=== PATIENT | male | born 1955 | race Caucasian/White ===

== ENCOUNTER 2017-01-04 01:50 | Emergency (ER) | payer MEDICARE ==
[~2017-01-04] VITALS: Ht 175.3 cm; Wt 79.1 kg
[~2017-01-04 01:50] MED LIST: DIVA125T2 PO; LURA20TA PO; ZOLP-413 PO
[2017-01-04 01:55] VITALS: BP 134/70
== END 2017-01-04 02:25 | disposition home or self-care (01) ==
LOC: ED 02:20
DX: Z00.8 Encounter for other general examination (principal); F31.9 Bipolar disorder, unspecified; F17.200 Nicotine dependence, unspecified, uncomplicated
CPT/HCPCS: 99283

== ENCOUNTER 2017-01-24 18:26 | Emergency (ER) | payer MEDICARE ==
[~2017-01-24] VITALS: Ht 180.3 cm; Wt 69.0 kg
[2017-01-24 19:54] VITALS: BP 124/74
== END 2017-01-24 19:57 | disposition home or self-care (01) ==
LOC: ED 19:51
DX: Z76.0 Encounter for issue of repeat prescription (principal); F31.9 Bipolar disorder, unspecified
CPT/HCPCS: 82962; 99283

== ENCOUNTER 2017-02-25 04:29 | Emergency (ER) | payer MEDICARE ==
[~2017-02-25] VITALS: Ht 167.6 cm; Wt 70.0 kg
[~2017-02-25 04:29] MED LIST changes: +CHLO5CAP2 PO
[2017-02-25 05:54] LABS: HEMATOCRIT 38.8 % (39.2-51.8); HEMOGLOBIN 13.3 g/dL (13.7-18.0)
[2017-02-25 06:05] LABS: ASPARTATE AMINO TRANSFERASE 30 U/L (15-37); BLOOD UREA NITROGEN 25 mg/dL (7-18)
[2017-02-25 06:07] LABS: ACETAMINOPHEN < 2 mcg/mL (10-30)
[2017-02-25 10:06] VITALS: BP 101/61
== END 2017-02-25 10:07 | disposition home or self-care (01) ==
LOC: ED 04:33
DX: F31.9 Bipolar disorder, unspecified (principal); F17.210 Nicotine dependence, cigarettes, uncomplicated
CPT/HCPCS: 36415; 80053; 80307; 80329; 85025; 99284; G0479; G0480

== ENCOUNTER 2017-03-08 19:10 | Emergency (ER) | payer MEDICARE ==
[~2017-03-08] VITALS: Ht 177.8 cm; Wt 70.1 kg
[2017-03-08 19:37] LABS: HEMATOCRIT 38.4 % (39.2-51.8); HEMOGLOBIN 12.8 g/dL (13.7-18.0); WHITE BLOOD COUNT 11.7 x10^3/uL (3.4-10)
[2017-03-08 19:51] LABS: BLOOD UREA NITROGEN 21 mg/dL (7-18)
[2017-03-08 19:55] LABS: ACETAMINOPHEN < 2 mcg/mL (10-30); ASPARTATE AMINO TRANSFERASE 31 U/L (15-37)
[2017-03-08] MEDS ORDERED: CEFAZOLIN 1,000 MG IM ONE (20:30)
[2017-03-08] MEDS ORDERED: CEFAZOLIN 1,000 MG ONE (20:35)
[2017-03-08 20:51] VITALS: BP 95/55
== END 2017-03-08 22:08 | disposition home or self-care (01) ==
LOC: ED 19:46
DX: L03.114 Cellulitis of left upper limb (principal); L03.113 Cellulitis of right upper limb; Z59.0 Homelessness
CPT/HCPCS: 36415; 80053; 80307; 80329; 85025; 96372; 99284; J0690; G0479; G0480

== ENCOUNTER 2017-03-24 17:19 | Emergency (ER) | payer MEDICARE ==
[~2017-03-24] VITALS: Ht 180.3 cm; Wt 69.1 kg
[2017-03-24 17:20] VITALS: BP 98/67
[2017-03-24 18:34] LABS: HEMATOCRIT 38.2 % (39.2-51.8); HEMOGLOBIN 12.9 g/dL (13.7-18.0); WHITE BLOOD COUNT 4.9 x10^3/uL (3.4-10)
[2017-03-24 18:45] LABS: BLOOD UREA NITROGEN 21 mg/dL (7-18)
[2017-03-24 18:49] LABS: IS PT STATUS REG ER OR PRE ER? YES
== END 2017-03-24 20:16 | disposition home or self-care (01) ==
LOC: ED 20:10
DX: R07.89 Other chest pain (principal); F31.9 Bipolar disorder, unspecified; Z59.0 Homelessness
CPT/HCPCS: 36415; 71010; 80048; 82040; 84484; 85025; 93005; 99285

== ENCOUNTER 2017-03-29 19:51 | Emergency (ER) | payer MEDICARE ==
[~2017-03-29] VITALS: Ht 180.3 cm; Wt 80.0 kg
[2017-03-29] MEDS ORDERED: ASPIRIN 81 MG TABLET CHEW PO ONE (20:00)
[2017-03-29] MEDS ORDERED: SODIUM CHLORIDE FLUSH 10ML SYR IVF ONE (20:00)
[2017-03-29 20:25] VITALS: BP 113/69
[2017-03-29] MEDS ORDERED: ASPIRIN 81 MG TABLET CHEW ONE (20:29)
[2017-03-29] MEDS ORDERED: DIPHENHYDRAMINE 25 MG CAPSULE ONE (20:29)
[2017-03-29 20:37] LABS: HEMATOCRIT 37.9 % (39.2-51.8); HEMOGLOBIN 12.6 g/dL (13.7-18.0); WHITE BLOOD COUNT 8.7 x10^3/uL (3.4-10)
[2017-03-29 20:54] LABS: BLOOD UREA NITROGEN 30 mg/dL (7-18)
[2017-03-29 21:00] LABS: ASPARTATE AMINO TRANSFERASE 23 U/L (15-37)
[2017-03-29 21:03] LABS: IS PT STATUS REG ER OR PRE ER? YES
== END 2017-03-29 21:28 | disposition home or self-care (01) ==
LOC: ED 20:19
DX: R07.2 Precordial pain (principal); Z72.89 Other problems related to lifestyle; F17.200 Nicotine dependence, unspecified, uncomplicated
CPT/HCPCS: 36415; 71010; 80053; 83880; 84484; 85025; 93005; 99285

== ENCOUNTER 2017-03-30 22:09 | Emergency (ER) | payer MEDICARE ==
[~2017-03-30] VITALS: Ht 180.3 cm; Wt 70.0 kg
[2017-03-30 23:10] VITALS: BP 115/70
== END 2017-03-31 01:17 | disposition home or self-care (01) ==
LOC: ED 23:39
DX: Z00.00 Encounter for general adult medical examination without abnormal findings (principal); F31.9 Bipolar disorder, unspecified
CPT/HCPCS: 93005; 99283

== ENCOUNTER 2017-04-02 21:45 | Emergency (ER) | payer MEDICARE ==
[~2017-04-02] VITALS: Ht 180.3 cm; Wt 72.8 kg
[2017-04-02 23:33] LABS: HEMATOCRIT 36.8 % (39.2-51.8); HEMOGLOBIN 12.1 g/dL (13.7-18.0); WHITE BLOOD COUNT 9.2 x10^3/uL (3.4-10)
[2017-04-02 23:37] VITALS: BP 119/79
[2017-04-02 23:45] LABS: BLOOD UREA NITROGEN 26 mg/dL (7-18)
[2017-04-03 00:02] LABS: IS PT STATUS REG ER OR PRE ER? NO
== END 2017-04-02 23:39 | disposition home or self-care (01) ==
LOC: ED 23:16
DX: R07.9 Chest pain, unspecified (principal); F31.9 Bipolar disorder, unspecified
CPT/HCPCS: 36415; 80048; 82040; 84484; 85025; 93005; 99285

== ENCOUNTER 2017-04-05 05:35 | Emergency (ER) | payer MEDICARE | END 2017-04-05 06:07 | disposition left against medical advice (07) | LOC: ED 06:00 | DX: R07.9 Chest pain, unspecified (principal); Z53.21 Procedure and treatment not carried out due to patient leaving prior to being seen by health care provider ==

== ENCOUNTER 2017-04-05 06:26 | Emergency (ER) | payer MEDICARE, OTHER ==
[~2017-04-05] VITALS: Ht 180.3 cm; Wt 69.3 kg
[2017-04-05 06:28] VITALS: BP 107/70
== END 2017-04-05 09:54 | disposition home or self-care (01) ==
LOC: ED 09:48
DX: Z00.00 Encounter for general adult medical examination without abnormal findings (principal)
CPT/HCPCS: 82962; 99282

== ENCOUNTER 2017-04-06 01:46 | Emergency (ER) | payer MEDICARE, OTHER ==
[~2017-04-06] VITALS: Ht 180.3 cm; Wt 58.1 kg
[2017-04-06 01:51] VITALS: BP 151/79
== END 2017-04-06 02:49 | disposition home or self-care (01) ==
LOC: ED 02:43
DX: R10.9 Unspecified abdominal pain (principal); Z76.5 Malingerer [conscious simulation]
CPT/HCPCS: 99283

== ENCOUNTER 2017-04-08 01:54 | Emergency (ER) | payer MEDICARE ==
[~2017-04-08] VITALS: Ht 177.8 cm; Wt 70.0 kg
[2017-04-08] MEDS ORDERED: KETOROLAC 30 MG/1 ML ONE (02:06)
[2017-04-08] MEDS ORDERED: THIAMINE 100MG TABLET ONE (02:06)
[2017-04-08] MEDS ORDERED: ONDANSETRON 2MG/ML, 2ML ONE (02:06)
[2017-04-08] MEDS ORDERED: DIPH,PERTUSS(ACELL),TET VAC/PF 0.5 ML IM-VACC ONE ×2 (02:07→02:30)
[2017-04-08] MEDS ORDERED: THIAMINE 100MG TABLET PO ONE (02:30)
[2017-04-08] MEDS ORDERED: SODIUM CHLORIDE 0.9% 1,000ML IVBOLUS ONE (02:30)
[2017-04-08] MEDS ORDERED: SODIUM CHLORIDE FLUSH 10ML SYR IVF ONE (02:30)
[2017-04-08] MEDS ORDERED: ONDANSETRON 2MG/ML, 2ML IVPush ONE (02:30)
[2017-04-08] MEDS ORDERED: KETOROLAC 30 MG/1 ML IV ONE (02:30)
[2017-04-08 03:08] LABS: BASOPHILS # (AUTO) 0.05 x10^3/uL (0-0.1); BASOPHILS % (AUTO) 1 % (0-1); EOSINOPHILS # (AUTO) 0.15 x10^3/uL (0-0.4); EOSINOPHILS % (AUTO) 1 % (1-7); LYMPHOCYTES % (AUTO) 12 % (22-44); MD NO; MEAN CORPUSCULAR HEMOGLOBIN 32.3 pg (27.5-34.5); MEAN CORPUSCULAR HGB CONC 33.5 g/dL (33.2-36.2); MEAN CORPUSCULAR VOLUME 96.6 fL (81-97); MEAN PLATELET VOLUME 6.9 fL (7.4-10.4); MONOCYTES # (AUTO) 1.11 x10^3/uL (0.2-0.8); MONOCYTES % (AUTO) 10 % (2-9); NEUTROPHILS # (AUTO) 8.67 x10^3/uL (1.8-6.8); NEUTROPHILS % (AUTO) 77 % (42-75); PLATELET COUNT 383 x10^3/uL (130-400); RED BLOOD COUNT 3.55 x10^6/uL (4.38-5.82); RED CELL DISTRIBUTION WIDTH 13.9 % (9.4-14.8)
[2017-04-08 03:13] LABS: ALBUMIN 3.1 g/dL (3.4-5.0); ANION GAP 5 mmol/L (5-15); CALCIUM 8.9 mg/dL (8.5-10.1); CHLORIDE 104 mmol/L (98-107)
[2017-04-08 06:32] VITALS: BP 116/57
== END 2017-04-08 06:39 | disposition home or self-care (01) ==
LOC: ED 02:28
DX: S42.021A Displaced fracture of shaft of right clavicle, initial encounter for closed fracture (principal); S01.01XA Laceration without foreign body of scalp, initial encounter; G89.11 Acute pain due to trauma; F10.10 Alcohol abuse, uncomplicated; W01.0XXA Fall on same level from slipping, tripping and stumbling without subsequent striking against object, initial encounter; Y93.89 Activity, other specified; Y92.89 Other specified places as the place of occurrence of the external cause; Y99.8 Other external cause status
CPT/HCPCS: 12001; 36415; 70450; 70486; 72125; 73030; 73564; 73610; 80048; 80307; 82040; 85025; 90471; 90715; 96361; 96374; 96375; 99285; J1885; J2405; J7030; G0479

== ENCOUNTER 2017-04-09 20:50 | Emergency (ER) | payer MEDICARE ==
[~2017-04-09] VITALS: Ht 180.3 cm; Wt 68.2 kg
[2017-04-09 20:53] VITALS: BP 133/77
[2017-04-09] MEDS ORDERED: IBUPROFEN 200 MG TABLET PO ONE (21:30)
== END 2017-04-09 21:53 | disposition home or self-care (01) ==
LOC: ED 21:47
DX: S42.021A Displaced fracture of shaft of right clavicle, initial encounter for closed fracture (principal); X58.XXXA Exposure to other specified factors, initial encounter; Y93.89 Activity, other specified; Y92.89 Other specified places as the place of occurrence of the external cause; Y99.8 Other external cause status
CPT/HCPCS: 99283

== ENCOUNTER 2017-04-09 22:00 | Emergency (ER) | payer MEDICARE ==
[~2017-04-09] VITALS: Ht 180.3 cm; Wt 68.2 kg
[2017-04-09 22:07] VITALS: BP 131/72
== END 2017-04-09 22:33 | disposition left against medical advice (07) ==
LOC: ED 22:27
DX: R52 Pain, unspecified (principal); Z53.21 Procedure and treatment not carried out due to patient leaving prior to being seen by health care provider

== ENCOUNTER 2017-04-19 22:35 | Emergency (ER) | payer MEDICARE ==
[~2017-04-19] VITALS: Ht 180.3 cm; Wt 75.0 kg
[2017-04-19 22:58] VITALS: BP 101/62
== END 2017-04-19 23:41 | disposition home or self-care (01) ==
LOC: ED 23:24
DX: Z76.5 Malingerer [conscious simulation] (principal); Z04.8 Encounter for examination and observation for other specified reasons; F17.200 Nicotine dependence, unspecified, uncomplicated
CPT/HCPCS: 93005; 99283

== ENCOUNTER 2017-06-23 23:24 | Emergency (ER) | payer MEDICARE ==
[~2017-06-23] VITALS: Ht 180.3 cm; Wt 71.7 kg
[2017-06-23 23:31] VITALS: BP 109/74
== END 2017-06-24 02:37 | disposition home or self-care (01) ==
LOC: ED 06-24 01:24
DX: S83.8X1A Sprain of other specified parts of right knee, initial encounter (principal); F31.9 Bipolar disorder, unspecified; X58.XXXA Exposure to other specified factors, initial encounter; Y93.01 Activity, walking, marching and hiking; Y92.488 Other paved roadways as the place of occurrence of the external cause; Y99.8 Other external cause status
CPT/HCPCS: 99281

== ENCOUNTER 2017-06-30 01:19 | Emergency (ER) | payer MEDICARE ==
[~2017-06-30] VITALS: Ht 172.7 cm; Wt 70.0 kg
[2017-06-30 01:22] VITALS: BP 120/80
== END 2017-06-30 01:36 ==
LOC: ED 01:30
DX: Z76.5 Malingerer [conscious simulation] (principal)
CPT/HCPCS: 99283

== ENCOUNTER 2017-07-02 20:36 | Emergency (ER) | payer MEDICARE ==
[~2017-07-02] VITALS: Ht 180.3 cm; Wt 68.5 kg
[2017-07-02 20:39] VITALS: BP 114/79
== END 2017-07-02 20:52 ==
LOC: ED 20:46
DX: Z53.21 Procedure and treatment not carried out due to patient leaving prior to being seen by health care provider (principal)

== ENCOUNTER 2017-07-05 23:56 | Emergency (ER) | payer MEDICARE ==
[~2017-07-05] VITALS: Ht 177.8 cm; Wt 66.5 kg
[2017-07-05 23:58] VITALS: BP 122/74
== END 2017-07-06 01:21 | disposition home or self-care (01) ==
LOC: ED 07-06 01:11
DX: R07.89 Other chest pain (principal); Z72.89 Other problems related to lifestyle; I10 Essential (primary) hypertension
CPT/HCPCS: 93005; 99283

== ENCOUNTER 2017-07-07 07:56 | Emergency (ER) | payer MEDICARE ==
[~2017-07-07] VITALS: Ht 180.3 cm; Wt 70.5 kg
[2017-07-07 07:58] VITALS: BP 128/68
[2017-07-07] MEDS ORDERED: BACITRACIN ZINC OINT 500U/GM, 0.9 GM ONE (11:17)
== END 2017-07-07 11:52 | disposition home or self-care (01) ==
LOC: ED 08:27
DX: M79.671 Pain in right foot (principal); M79.672 Pain in left foot; F10.220 Alcohol dependence with intoxication, uncomplicated; I10 Essential (primary) hypertension
CPT/HCPCS: 99283

== ENCOUNTER 2017-07-10 03:26 | Emergency (ER) | payer MEDICARE ==
[~2017-07-10] VITALS: Ht 170.2 cm; Wt 67.9 kg
[2017-07-10 04:36] VITALS: BP 95/57
== END 2017-07-10 04:57 | disposition home or self-care (01) ==
LOC: ED 04:51
DX: R07.9 Chest pain, unspecified (principal); Z72.89 Other problems related to lifestyle; I10 Essential (primary) hypertension
CPT/HCPCS: 36415; 84484; 93005; 99285

== ENCOUNTER 2018-01-29 21:20 | Emergency (ER) | payer MEDICARE ==
[~2018-01-29] VITALS: Ht 182.9 cm; Wt 76.8 kg
[2018-01-29 21:29] VITALS: BP 122/81
== END 2018-01-29 23:27 | disposition home or self-care (01) ==
LOC: ED 23:00
DX: G89.11 Acute pain due to trauma (principal); M79.641 Pain in right hand; W18.30XA Fall on same level, unspecified, initial encounter; Y93.89 Activity, other specified; Y92.009 Unspecified place in unspecified non-institutional (private) residence as the place of occurrence of the external cause; Y99.8 Other external cause status
CPT/HCPCS: 99284

== ENCOUNTER 2018-03-03 21:25 | Emergency (ER) | payer MEDICARE ==
[~2018-03-03] VITALS: Ht 180.3 cm; Wt 72.3 kg
[2018-03-03 23:46] LABS: BASOPHILS % (AUTO) 1 % (0-1); EOSINOPHILS # (AUTO) 0.31 x10^3/uL (0-0.4); EOSINOPHILS % (AUTO) 4 % (1-7); LYMPHOCYTES # (AUTO) 2.26 x10^3/uL (1-3.4); LYMPHOCYTES % (AUTO) 26 % (22-44); MD NO; MEAN CORPUSCULAR HEMOGLOBIN 32.2 pg (27.5-34.5); MEAN CORPUSCULAR HGB CONC 33.8 g/dL (33.2-36.2); MEAN CORPUSCULAR VOLUME 95.3 fL (81-97); MEAN PLATELET VOLUME 7.6 fL (7.4-10.4); MONOCYTES # (AUTO) 0.81 x10^3/uL (0.2-0.8); MONOCYTES % (AUTO) 9 % (2-9); NEUTROPHILS # (AUTO) 5.32 x10^3/uL (1.8-6.8); NEUTROPHILS % (AUTO) 60 % (42-75); PLATELET COUNT 319 x10^3/uL (130-400); RED BLOOD COUNT 4.43 x10^6/uL (4.38-5.82); RED CELL DISTRIBUTION WIDTH 14.1 % (9.4-14.8)
[2018-03-03 23:59] LABS: ALANINE AMINOTRANSFERASE 21 U/L (12-78); ALBUMIN 3.7 g/dL (3.4-5.0); ANION GAP 7 mmol/L (5-15); CALCIUM 9.2 mg/dL (8.5-10.1); CHLORIDE 105 mmol/L (98-107); CREATININE 0.86 mg/dL (0.7-1.3)
[2018-03-04 00:01] LABS: ALKALINE PHOSPHATASE 72 U/L (45-117); BILIRUBIN,TOTAL 0.5 mg/dL (0.2-1.0); TOTAL PROTEIN 7.1 g/dL (6.4-8.2)
[2018-03-04 01:04] VITALS: BP 118/68
== END 2018-03-04 01:06 | disposition home or self-care (01) ==
LOC: ED 23:22
DX: M54.2 Cervicalgia (principal); R10.84 Generalized abdominal pain; F32.0 Major depressive disorder, single episode, mild; I10 Essential (primary) hypertension; F17.200 Nicotine dependence, unspecified, uncomplicated
CPT/HCPCS: 36415; 80053; 83690; 85025; 93005; 99284

== ENCOUNTER 2018-03-27 22:10 | Emergency (ER) | payer MEDICARE ==
[~2018-03-27] VITALS: Ht 175.3 cm; Wt 73.7 kg
[2018-03-27 22:14] VITALS: BP 132/77
== END 2018-03-27 23:20 | disposition home or self-care (01) ==
LOC: ED 22:42
DX: F51.01 Primary insomnia (principal); Z72.9 Problem related to lifestyle, unspecified; F31.9 Bipolar disorder, unspecified; I10 Essential (primary) hypertension
CPT/HCPCS: 99281

== ENCOUNTER 2018-07-20 05:05 | Emergency (ER) | payer MEDICARE ==
[~2018-07-20] VITALS: Ht 180.3 cm; Wt 64.0 kg
[2018-07-20 05:12] VITALS: BP 120/81
--- NOTE | 2018-07-20 06:26 | NUR ---
Patient/Caregiver given discharge instructions and they have confirmed that they understand the instructions. Patient ambulatory with steady gait.
== END 2018-07-20 06:28 | disposition home or self-care (01) ==
LOC: ED 06:20
DX: M79.661 Pain in right lower leg (principal); I10 Essential (primary) hypertension; Z59.0 Homelessness; F17.200 Nicotine dependence, unspecified, uncomplicated
CPT/HCPCS: 99284

== ENCOUNTER 2018-07-21 01:28 | Emergency (ER) | payer MEDICARE ==
[~2018-07-21] VITALS: Ht 180.3 cm; Wt 64.8 kg
--- NOTE | 2018-07-21 01:39 | NUR ---
RN in to assess pt, pt can be heard in bathroom vomiting.
--- NOTE | 2018-07-21 01:43 | NUR ---
LUNCH RN: Pt ambulated to room from bathroom, pt changing into gown.
[2018-07-21 01:50] VITALS: BP 125/79
[2018-07-21] MEDS ORDERED: ONDANSETRON ODT 4 MG ONE (01:56)
[2018-07-21] MEDS ORDERED: ONDANSETRON ODT 4 MG PO ONE (02:00)
--- NOTE | 2018-07-21 02:09 | NUR ---
pt medicated and given soda and crackers for PO challange. will reassess and discharge
--- NOTE | 2018-07-21 02:20 | NUR ---
pt tolerated po fluids. Pt verbalized understanding of dicharge and follow up instructions and given a cab voucher. Pt getting dressed.
== END 2018-07-21 02:52 | disposition home or self-care (01) ==
LOC: ED 02:07
DX: R11.0 Nausea (principal); R10.9 Unspecified abdominal pain; I10 Essential (primary) hypertension; Z72.9 Problem related to lifestyle, unspecified; Z59.0 Homelessness; F31.9 Bipolar disorder, unspecified; F17.200 Nicotine dependence, unspecified, uncomplicated
CPT/HCPCS: 99283; Q0162

== ENCOUNTER 2018-08-15 05:24 | Emergency (ER) | payer MEDICARE ==
[~2018-08-15] VITALS: Ht 180.3 cm; Wt 72.0 kg
[2018-08-15 06:41] LABS: BASOPHILS # (AUTO) 0.03 x10^3/uL (0-0.1); BASOPHILS % (AUTO) 0 % (0-1); EOSINOPHILS # (AUTO) 0.18 x10^3/uL (0-0.4); EOSINOPHILS % (AUTO) 2 % (1-7); LYMPHOCYTES # (AUTO) 1.62 x10^3/uL (1-3.4); LYMPHOCYTES % (AUTO) 14 % (22-44); MD NO; MEAN CORPUSCULAR HEMOGLOBIN 33.3 pg (27.5-34.5); MEAN CORPUSCULAR HGB CONC 33.7 g/dL (33.2-36.2); MEAN CORPUSCULAR VOLUME 98.6 fL (81-97); MEAN PLATELET VOLUME 7.7 fL (7.4-10.4); MONOCYTES # (AUTO) 0.81 x10^3/uL (0.2-0.8); MONOCYTES % (AUTO) 7 % (2-9); NEUTROPHILS # (AUTO) 8.67 x10^3/uL (1.8-6.8); NEUTROPHILS % (AUTO) 77 % (42-75); PLATELET COUNT 301 x10^3/uL (130-400); RED BLOOD COUNT 4.09 x10^6/uL (4.38-5.82); RED CELL DISTRIBUTION WIDTH 15.3 % (9.4-14.8)
[2018-08-15] MEDS ORDERED: DIVA500T2 PO (06:47)
[2018-08-15] MEDS ORDERED: ARIP5TAB13 PO (06:47)
[2018-08-15] MEDS ORDERED: TRAZ150T62 PO (06:47)
[2018-08-15 06:48] LABS: ALANINE AMINOTRANSFERASE 20 U/L (12-78); ANION GAP 5 mmol/L (5-15); CALCIUM 9.6 mg/dL (8.5-10.1); CHLORIDE 105 mmol/L (98-107); CREATININE 0.81 mg/dL (0.7-1.3)
[2018-08-15 06:52] LABS: ALKALINE PHOSPHATASE 59 U/L (45-117); BILIRUBIN,TOTAL 0.3 mg/dL (0.2-1.0); TOTAL PROTEIN 7.5 g/dL (6.4-8.2); TROPONIN I < 0.015 ng/mL (0.000-0.045)
--- NOTE | 2018-08-15 07:00 | NUR ---
REPORT RECEIVED, CARE ASSUMED. PT SITTING UP ON GURNEY. NO ACUTE DISTRESS NOTED. SR PER MONITOR. AUTO BP AND PULSE OX IN PLACE. PT AWARE OF WAITING FOR TEST RESULTS. PT PROVIDED WITH URINAL. NO OTHER NEEDS EXPRESSED AT THIS TIME.
--- NOTE | 2018-08-15 07:24 | NUR ---
PT CONT IN NO ACUTE DISTRESS, NO IV TO DC. REVIEWED DC INSTRUCTIONS WITH PT, UNDERSTANDING VERBALIZED. PT PROVIDED WITH MILK AND BRAXTON CRACKERS. NO OTHER NEEDS EXPRESSED AT THIS TIME.
[2018-08-15 07:25] VITALS: BP 118/69
== END 2018-08-15 07:27 | disposition home or self-care (01) ==
LOC: ED 06:11
DX: R06.00 Dyspnea, unspecified (principal); F31.9 Bipolar disorder, unspecified; I10 Essential (primary) hypertension; Z72.9 Problem related to lifestyle, unspecified
CPT/HCPCS: 36415; 71045; 80053; 83880; 84484; 85025; 93005; 99284

== ENCOUNTER 2018-08-23 00:40 | Emergency (ER) | payer MEDICARE ==
[~2018-08-23] VITALS: Ht 180.3 cm; Wt 71.8 kg
[~2018-08-23 00:40] MED LIST changes: +ARIP5TAB13 PO; +DIVA500T2 PO; +TRAZ150T62 PO
[2018-08-23 00:57] VITALS: BP 114/68
[2018-08-23] MEDS ORDERED: MAALOX/HYOSCYAMINE/LIDOCAINE 45 ML BTL ONE (01:00)
[2018-08-23] MEDS ORDERED: ONDANSETRON ODT 4 MG PO ONE (01:00)
[2018-08-23] MEDS ORDERED: MAALOX/HYOSCYAMINE/LIDOCAINE 45 ML BTL PO ONE (01:00)
[2018-08-23] MEDS ORDERED: ONDANSETRON ODT 4 MG ONE (01:00)
--- NOTE | 2018-08-23 01:03 | NUR ---
pt resting calmly, monitors in place, siderails up x2, call light within reach. medicated per mar, awaiting lab results
[2018-08-23 01:08] LABS: BASOPHILS # (AUTO) 0.06 x10^3/uL (0-0.1); BASOPHILS % (AUTO) 1 % (0-1); EOSINOPHILS # (AUTO) 0.22 x10^3/uL (0-0.4); EOSINOPHILS % (AUTO) 2 % (1-7); LYMPHOCYTES % (AUTO) 23 % (22-44); MD NO; MEAN CORPUSCULAR HEMOGLOBIN 33.4 pg (27.5-34.5); MEAN CORPUSCULAR HGB CONC 34.1 g/dL (33.2-36.2); MEAN PLATELET VOLUME 7.7 fL (7.4-10.4); MONOCYTES # (AUTO) 0.96 x10^3/uL (0.2-0.8); MONOCYTES % (AUTO) 11 % (2-9); NEUTROPHILS % (AUTO) 64 % (42-75); PLATELET COUNT 281 x10^3/uL (130-400); RED CELL DISTRIBUTION WIDTH 15.3 % (9.4-14.8)
[2018-08-23 01:19] LABS: ALANINE AMINOTRANSFERASE 26 U/L (12-78); ALBUMIN 3.8 g/dL (3.4-5.0); ANION GAP 6 mmol/L (5-15); CHLORIDE 109 mmol/L (98-107); CREATININE 0.76 mg/dL (0.7-1.3)
[2018-08-23 01:22] LABS: ALKALINE PHOSPHATASE 69 U/L (45-117); BILIRUBIN,TOTAL 0.3 mg/dL (0.2-1.0); TOTAL PROTEIN 7.1 g/dL (6.4-8.2)
--- NOTE | 2018-08-23 01:27 | NUR ---
PROVIDED PT WITH PO FLUIDS, WATER AND JUICE
== END 2018-08-23 01:44 | disposition home or self-care (01) ==
LOC: ED 01:07
DX: R11.2 Nausea with vomiting, unspecified (principal); Z72.9 Problem related to lifestyle, unspecified; F31.9 Bipolar disorder, unspecified; I10 Essential (primary) hypertension
CPT/HCPCS: 36415; 80053; 83690; 85025; 99283; Q0162

== ENCOUNTER 2018-09-19 22:44 | Emergency (ER) | payer MEDICARE ==
[~2018-09-19] VITALS: Ht 175.3 cm; Wt 70.0 kg
[2018-09-19 22:48] VITALS: BP 123/79
--- NOTE | 2018-09-19 23:02 | NUR ---
BILAT GARAGE DOORS DOWN. PT CLOTHING REMOVED. PT IN HOSPITAL GOWN. PT BELONGINGS BAGGED, TAGGED AND PLACED IN CLOTHING CLOSET. PT STATED HE IS HURTING ON HIS LEFT SIDE, HE THINKS IT'S FROM WHEN THE WERE DOING HIS HEART STUFF. THIS RN ASKED WHEN HE WAS HAVING WORK DONE ON HIS HEART. PT STATED HE DID NOT KNOW, THAT HE IS HAVING TROUBLE RECALLING STUFF. PT UNSURE OF ANY RECENT INJURIES. ASKED PT WHEN HIS SISTER , PT STATED HE'S NOT SURE IF SHE'S , THAT HE DOES NOT KNOW WHERE ANY OF HIS FAMILY IS.
== END 2018-09-20 00:21 | disposition home or self-care (01) ==
LOC: ED 23:07
DX: Z00.00 Encounter for general adult medical examination without abnormal findings (principal); Z72.9 Problem related to lifestyle, unspecified; I10 Essential (primary) hypertension; F31.9 Bipolar disorder, unspecified; F17.200 Nicotine dependence, unspecified, uncomplicated
CPT/HCPCS: 93005; 99283

== ENCOUNTER 2018-10-11 23:43 | Emergency (ER) | payer MEDICARE ==
[~2018-10-11] VITALS: Ht 180.3 cm; Wt 76.5 kg
[2018-10-12 00:09] LABS: BASOPHILS # (AUTO) 0.14 x10^3/uL (0-0.1); BASOPHILS % (AUTO) 1 % (0-1); EOSINOPHILS # (AUTO) 0.11 x10^3/uL (0-0.4); EOSINOPHILS % (AUTO) 1 % (1-7); LYMPHOCYTES # (AUTO) 2.04 x10^3/uL (1-3.4); LYMPHOCYTES % (AUTO) 14 % (22-44); MD NO; MEAN CORPUSCULAR HEMOGLOBIN 33.4 pg (27.5-34.5); MEAN CORPUSCULAR HGB CONC 33.2 g/dL (33.2-36.2); MEAN CORPUSCULAR VOLUME 100.8 fL (81-97); MEAN PLATELET VOLUME 7.8 fL (7.4-10.4); MONOCYTES # (AUTO) 1.34 x10^3/uL (0.2-0.8); MONOCYTES % (AUTO) 9 % (2-9); NEUTROPHILS # (AUTO) 11.03 x10^3/uL (1.8-6.8); NEUTROPHILS % (AUTO) 75 % (42-75); PLATELET COUNT 331 x10^3/uL (130-400); RED BLOOD COUNT 4.42 x10^6/uL (4.38-5.82); RED CELL DISTRIBUTION WIDTH 13.4 % (9.4-14.8)
[2018-10-12 00:18] LABS: ALANINE AMINOTRANSFERASE 24 U/L (12-78); ALBUMIN 4.3 g/dL (3.4-5.0); ANION GAP 4 mmol/L (5-15); CALCIUM 9.5 mg/dL (8.5-10.1); CHLORIDE 103 mmol/L (98-107); CREATININE 0.86 mg/dL (0.7-1.3)
[2018-10-12 00:22] LABS: ALKALINE PHOSPHATASE 54 U/L (45-117); BILIRUBIN,TOTAL 0.3 mg/dL (0.2-1.0); TOTAL PROTEIN 7.7 g/dL (6.4-8.2); TROPONIN I < 0.015 ng/mL (0.000-0.045)
--- NOTE | 2018-10-12 00:55 | NUR ---
ASSESSMENT MADE. CHART UP FOR MD TO SEE.
[2018-10-12 01:07] VITALS: BP 113/75
--- NOTE | 2018-10-12 01:07 | NUR ---
PT REPORTS THAT CHEST PAIN HAS RESOLVED AT THIS TIME, COMPLAINING OF GUM PAIN
== END 2018-10-12 01:28 | disposition home or self-care (01) ==
LOC: ED 10-12 01:21
DX: R07.89 Other chest pain (principal); S00.512A Abrasion of oral cavity, initial encounter; I10 Essential (primary) hypertension; Z72.9 Problem related to lifestyle, unspecified; F31.9 Bipolar disorder, unspecified; F17.210 Nicotine dependence, cigarettes, uncomplicated; Z59.0 Homelessness; X58.XXXA Exposure to other specified factors, initial encounter; Y93.89 Activity, other specified; Y92.89 Other specified places as the place of occurrence of the external cause; Y99.8 Other external cause status
CPT/HCPCS: 36415; 71046; 80053; 84484; 85025; 93005; 99284

== ENCOUNTER 2018-11-09 20:49 | Emergency (ER) | payer MEDICARE ==
[~2018-11-09] VITALS: Ht 180.3 cm; Wt 72.0 kg
[2018-11-09 20:51] VITALS: BP 120/70
--- NOTE | 2018-11-09 21:29 | NUR ---
NIL X2 @ 1013
--- NOTE | 2018-11-09 21:42 | NUR ---
NO ANSWER X 3
== END 2018-11-09 21:44 | disposition left against medical advice (07) ==
LOC: ED 21:35
DX: R00.9 Unspecified abnormalities of heart beat (principal); Z53.21 Procedure and treatment not carried out due to patient leaving prior to being seen by health care provider
CPT/HCPCS: 93005

== ENCOUNTER 2018-11-22 15:40 | Emergency (ER) | payer MEDICARE ==
[~2018-11-22] VITALS: Ht 180.3 cm; Wt 77.6 kg
[2018-11-22 15:45] VITALS: BP_SYST 73
== END 2018-11-22 17:16 | disposition other institution (70) ==
LOC: ED 17:10
DX: R07.9 Chest pain, unspecified (principal); G40.909 Epilepsy, unspecified, not intractable, without status epilepticus; Z59.0 Homelessness
CPT/HCPCS: 36415; 71045; 80053; 83690; 84484; 85025; 93005; 99284

== ENCOUNTER 2018-11-22 22:53 | Emergency (ER) | payer MEDICARE ==
[~2018-11-22] VITALS: Ht 182.9 cm; Wt 74.5 kg
[2018-11-22 22:55] VITALS: BP 125/71
== END 2018-11-23 00:50 | disposition home or self-care (01) ==
LOC: ED 11-23 00:47
DX: R07.89 Other chest pain (principal); F31.9 Bipolar disorder, unspecified; I10 Essential (primary) hypertension; Z72.9 Problem related to lifestyle, unspecified; F17.200 Nicotine dependence, unspecified, uncomplicated
CPT/HCPCS: 99281

== ENCOUNTER 2018-11-23 06:03 | Emergency (ER) | payer MEDICARE | END 2018-11-23 06:11 | disposition left against medical advice (07) | LOC: ED 06:05 | DX: R68.89 Other general symptoms and signs (principal); Z53.21 Procedure and treatment not carried out due to patient leaving prior to being seen by health care provider ==

== ENCOUNTER 2018-11-25 20:55 | Emergency (ER) | payer MEDICARE ==
[~2018-11-25] VITALS: Ht 180.3 cm; Wt 72.8 kg
[2018-11-26 01:10] VITALS: BP 126/78
== END 2018-11-26 01:12 | disposition home or self-care (01) ==
LOC: ED 23:49
DX: J02.8 Acute pharyngitis due to other specified organisms (principal); B97.89 Other viral agents as the cause of diseases classified elsewhere; I10 Essential (primary) hypertension; F31.9 Bipolar disorder, unspecified
CPT/HCPCS: 36415; 70360; 70491; 80047; 99284; Q9967

== ENCOUNTER 2019-03-07 02:29 | Emergency (ER) | payer MEDICARE, OTHER ==
[~2019-03-07] VITALS: Ht 180.3 cm; Wt 82.0 kg
[2019-03-07 02:36] VITALS: BP 137/82
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
[2019-03-07] MEDS ORDERED: LITH8SOL6 PO (02:46)
[2019-03-07] MEDS ORDERED: CLON0.5T PO (02:46)
[2019-03-07] MEDS ORDERED: ZOLP-413 PO (02:46)
[2019-03-07] MEDS ORDERED: ACETAMINOPHEN 325 MG TABLET ONE (02:56)
--- NOTE | 2019-03-07 02:59 | NUR ---
PT MEDICATED PER MAR
[2019-03-07] MEDS ORDERED: ACETAMINOPHEN 325 MG TABLET PO ONE (03:00)
--- NOTE | 2019-03-07 04:17 | NUR ---
MANJULA WRAP APPLIED TO RIGHT KNEE, PROVIDED PT WITH CANE.
--- NOTE | 2019-03-07 04:36 | NUR ---
PT ABLE TO AMBULATE WITH CANE, PT AMBULATED IN HALLWAY TO RR Addendum: 03/07/19 at 0437 by AMPARO PT REFUSED NEED FOR WALKER.
== END 2019-03-07 04:39 | disposition home or self-care (01) ==
LOC: ED 04:22
DX: S80.01XA Contusion of right knee, initial encounter (principal); F17.210 Nicotine dependence, cigarettes, uncomplicated; I10 Essential (primary) hypertension; W01.0XXA Fall on same level from slipping, tripping and stumbling without subsequent striking against object, initial encounter; Y93.89 Activity, other specified; Y92.410 Unspecified street and highway as the place of occurrence of the external cause; Y99.8 Other external cause status
CPT/HCPCS: 99283

== ENCOUNTER 2019-03-16 06:43 | Emergency (ER) | payer SELFPAY ==
[~2019-03-16] VITALS: Ht 180.3 cm; Wt 71.7 kg
[~2019-03-16 06:43] MED LIST changes: +CLON0.5T PO; +LITH8SOL6 PO
[2019-03-16 06:59] VITALS: BP 110/73
--- NOTE | 2019-03-16 07:02 | NUR ---
requesting pain med prescription for bilateral knee pain that he has had for years. states he has had a productive cough for 2 months.
[2019-03-16] MEDS ORDERED: KETOROLAC 30 MG/1 ML ONE (07:16)
--- NOTE | 2019-03-16 07:22 | NUR ---
after medicated per mar ambulated to xray
[2019-03-16] MEDS ORDERED: KETOROLAC 30 MG/1 ML IM ONE (07:30)
== END 2019-03-16 08:04 | disposition home or self-care (01) ==
LOC: ED 07:40
DX: G89.29 Other chronic pain (principal); M25.561 Pain in right knee; M25.562 Pain in left knee; J44.1 Chronic obstructive pulmonary disease with (acute) exacerbation; J15.9 Unspecified bacterial pneumonia; F17.210 Nicotine dependence, cigarettes, uncomplicated
CPT/HCPCS: 71046; 73564; 96372; 99283; J1885

== ENCOUNTER 2019-03-17 03:51 | Emergency (ER) | payer MEDICARE ==
[~2019-03-17] VITALS: Ht 177.8 cm; Wt 71.8 kg
[2019-03-17 03:53] VITALS: BP 102/72
== END 2019-03-17 04:18 | disposition home or self-care (01) ==
LOC: ED 04:16
DX: R56.9 Unspecified convulsions (principal); J44.9 Chronic obstructive pulmonary disease, unspecified; I10 Essential (primary) hypertension; F17.200 Nicotine dependence, unspecified, uncomplicated; Z72.89 Other problems related to lifestyle
CPT/HCPCS: 99281

== ENCOUNTER 2019-03-30 01:54 | Emergency (ER) | payer SELFPAY ==
[~2019-03-30] VITALS: Ht 180.3 cm; Wt 69.7 kg
[2019-03-30 03:09] VITALS: BP 119/84
== END 2019-03-30 03:11 | disposition home or self-care (01) ==
LOC: ED 02:27
DX: F31.9 Bipolar disorder, unspecified (principal); J44.9 Chronic obstructive pulmonary disease, unspecified; I10 Essential (primary) hypertension; F17.200 Nicotine dependence, unspecified, uncomplicated
CPT/HCPCS: 99281

== ENCOUNTER 2019-04-02 03:50 | Emergency (ER) | payer SELFPAY ==
[~2019-04-02] VITALS: Ht 180.3 cm; Wt 69.3 kg
[2019-04-02 03:54] VITALS: BP 95/64
--- NOTE | 2019-04-02 04:20 | NUR ---
DC EDUCATION PROVIDED, PT DEMONSTRATES UNDERSTANDING. PT AMBULATORY WITH STEADY GATE AND DRESSED APPROPRIATELY FOR WEATHER
== END 2019-04-02 04:22 | disposition home or self-care (01) ==
LOC: ED 04:11
DX: F31.9 Bipolar disorder, unspecified (principal); Z76.0 Encounter for issue of repeat prescription; I10 Essential (primary) hypertension; J44.9 Chronic obstructive pulmonary disease, unspecified; F17.210 Nicotine dependence, cigarettes, uncomplicated
CPT/HCPCS: 99281

== ENCOUNTER 2019-04-07 04:44 | Emergency (ER) | payer SELFPAY ==
[~2019-04-07] VITALS: Ht 180.3 cm; Wt 69.6 kg
[2019-04-07 04:47] VITALS: BP 125/74
--- NOTE | 2019-04-07 05:00 | NUR ---
PA AT PT'S BEDSIDE FOR EVAL
[2019-04-07] MEDS ORDERED: DIVA125T2 PO (05:02)
== END 2019-04-07 05:18 | disposition home or self-care (01) ==
LOC: ED 05:09
DX: R41.0 Disorientation, unspecified (principal); J44.9 Chronic obstructive pulmonary disease, unspecified; I10 Essential (primary) hypertension; F31.9 Bipolar disorder, unspecified; Z72.9 Problem related to lifestyle, unspecified
CPT/HCPCS: 99283

== ENCOUNTER 2019-04-16 06:25 | Emergency (ER) | payer OTHER ==
[~2019-04-16] VITALS: Ht 177.8 cm; Wt 70.9 kg
[2019-04-16 06:27] VITALS: BP 129/71
== END 2019-04-16 07:24 | disposition home or self-care (01) ==
LOC: ED 07:20
DX: R00.2 Palpitations (principal); J44.9 Chronic obstructive pulmonary disease, unspecified; F31.9 Bipolar disorder, unspecified; I10 Essential (primary) hypertension
CPT/HCPCS: 93005; 99283

== ENCOUNTER 2019-04-18 18:31 | Emergency (ER) | payer OTHER ==
[~2019-04-18] VITALS: Ht 177.8 cm; Wt 85.0 kg
[2019-04-18 18:36] VITALS: BP 94/60
[2019-04-18] MEDS ORDERED: ASPIRIN 81 MG TABLET CHEW PO ONE (19:30)
[2019-04-18 19:42] LABS: BASOPHILS # (AUTO) 0.08 x10^3/uL (0-0.1); BASOPHILS % (AUTO) 1 % (0-1); EOSINOPHILS # (AUTO) 0.19 x10^3/uL (0-0.4); EOSINOPHILS % (AUTO) 3 % (1-7); LYMPHOCYTES # (AUTO) 1.93 x10^3/uL (1-3.4); LYMPHOCYTES % (AUTO) 31 % (22-44); MD NO; MEAN CORPUSCULAR HEMOGLOBIN 32.3 pg (27.5-34.5); MEAN CORPUSCULAR HGB CONC 33.3 g/dL (33.2-36.2); MEAN CORPUSCULAR VOLUME 96.8 fL (81-97); MEAN PLATELET VOLUME 7.3 fL (7.4-10.4); MONOCYTES # (AUTO) 0.52 x10^3/uL (0.2-0.8); MONOCYTES % (AUTO) 8 % (2-9); NEUTROPHILS # (AUTO) 3.57 x10^3/uL (1.8-6.8); NEUTROPHILS % (AUTO) 57 % (42-75); PLATELET COUNT 352 x10^3/uL (130-400); RED BLOOD COUNT 4.24 x10^6/uL (4.38-5.82); RED CELL DISTRIBUTION WIDTH 13.5 % (9.4-14.8)
[2019-04-18 19:52] LABS: ALANINE AMINOTRANSFERASE 19 U/L (12-78); ALBUMIN 3.7 g/dL (3.4-5.0); ANION GAP 3 mmol/L (5-15); CALCIUM 9.5 mg/dL (8.5-10.1); CHLORIDE 105 mmol/L (98-107); CREATININE 0.67 mg/dL (0.7-1.3)
[2019-04-18 19:56] LABS: ALKALINE PHOSPHATASE 66 U/L (45-117); BILIRUBIN,TOTAL 0.4 mg/dL (0.2-1.0); TOTAL PROTEIN 7.3 g/dL (6.4-8.2); TROPONIN I < 0.015 ng/mL (0.000-0.045)
--- NOTE | 2019-04-18 20:10 | NUR ---
PT CAME IN CO OF "LEFT SIDED SEIZURES. COLD. BLOODY STOOL. MY HEART ISNT PUMPING BLOOD CORRECTLY". WARM BLANKET PROVIDED. CALL LIGHT WITHIN REACH
== END 2019-04-18 21:04 | disposition home or self-care (01) ==
LOC: ED 20:23
DX: R07.9 Chest pain, unspecified (principal); F17.200 Nicotine dependence, unspecified, uncomplicated; J44.9 Chronic obstructive pulmonary disease, unspecified; I10 Essential (primary) hypertension
CPT/HCPCS: 36415; 71046; 80053; 83880; 84484; 85025; 93005; 99284

== ENCOUNTER 2019-04-19 19:39 | Emergency (ER) | payer OTHER ==
[~2019-04-19] VITALS: Ht 177.8 cm; Wt 69.4 kg
[2019-04-19 19:43] VITALS: BP 124/65
== END 2019-04-19 20:24 | disposition home or self-care (01) ==
LOC: ED 20:18
DX: J44.9 Chronic obstructive pulmonary disease, unspecified (principal); Z76.0 Encounter for issue of repeat prescription; I10 Essential (primary) hypertension
CPT/HCPCS: 99281

== ENCOUNTER 2019-04-20 17:34 | Emergency (ER) | payer OTHER ==
[~2019-04-20] VITALS: Ht 177.8 cm; Wt 68.0 kg
[2019-04-20 17:40] VITALS: BP 113/66
== END 2019-04-20 19:33 | disposition home or self-care (01) ==
LOC: ED 19:27
DX: T50.905A Adverse effect of unspecified drugs, medicaments and biological substances, initial encounter (principal); J44.9 Chronic obstructive pulmonary disease, unspecified; I10 Essential (primary) hypertension; F17.210 Nicotine dependence, cigarettes, uncomplicated; Y92.9 Unspecified place or not applicable
CPT/HCPCS: 74018; 99283

== ENCOUNTER 2019-05-01 00:55 | Emergency (ER) | payer SELFPAY ==
[~2019-05-01] VITALS: Ht 172.7 cm; Wt 71.9 kg
[2019-05-01 00:59] VITALS: BP 133/73
--- NOTE | 2019-05-01 01:45 | NUR ---
NIL X 1
--- NOTE | 2019-05-01 01:55 | NUR ---
NIL X 2
--- NOTE | 2019-05-01 02:15 | NUR ---
NIL X 3
== END 2019-05-01 02:18 | disposition left against medical advice (07) ==
LOC: ED 01:30
DX: R56.9 Unspecified convulsions (principal); Z53.21 Procedure and treatment not carried out due to patient leaving prior to being seen by health care provider; R68.84 Jaw pain
CPT/HCPCS: 93005

== ENCOUNTER 2019-05-03 01:07 | Emergency (ER) | payer SELFPAY ==
[~2019-05-03] VITALS: Ht 170.2 cm; Wt 71.7 kg
[2019-05-03 01:10] VITALS: BP 109/67
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
[2019-05-03 01:42] LABS: BASOPHILS # (AUTO) 0.03 x10^3/uL (0-0.1); BASOPHILS % (AUTO) 0 % (0-1); EOSINOPHILS # (AUTO) 0.16 x10^3/uL (0-0.4); EOSINOPHILS % (AUTO) 3 % (1-7); LYMPHOCYTES # (AUTO) 1.62 x10^3/uL (1-3.4); LYMPHOCYTES % (AUTO) 25 % (22-44); MD NO; MEAN CORPUSCULAR HGB CONC 33.2 g/dL (33.2-36.2); MEAN CORPUSCULAR VOLUME 96.5 fL (81-97); MEAN PLATELET VOLUME 7.9 fL (7.4-10.4); MONOCYTES # (AUTO) 0.67 x10^3/uL (0.2-0.8); MONOCYTES % (AUTO) 10 % (2-9); NEUTROPHILS # (AUTO) 4.06 x10^3/uL (1.8-6.8); NEUTROPHILS % (AUTO) 62 % (42-75); PLATELET COUNT 280 x10^3/uL (130-400); RED BLOOD COUNT 4.25 x10^6/uL (4.38-5.82); RED CELL DISTRIBUTION WIDTH 13.8 % (9.4-14.8)
--- NOTE | 2019-05-03 01:43 | NUR ---
PT NOW BECOMING VERBALLY AGGRESSIVE TO STAFF STS " I DONT KNOW WHAT YOURE DOING BUT SOON I GET OUT OF HER I AM GOING TO [place] THIS FUCKING PLACE." PT STS HE IS NOT BEING TREATED FOR HIS HEART ATTACK." PT HAS HAD LABS DRAWN, CHEST XRAY COMPLETE, EKG, AND VITALS ARE STABLE 120/71 79 97% 18. WHEN PT INFORMED HE IS HAVING DIAGNOSTIC TESTING DONE INCLUDING EKG, PT STS "FUCK YOU [facility] YOU [facility]AR"
--- NOTE | 2019-05-03 01:50 | NUR ---
PT REFUSING ASSESSMENT BY THIS RN AWARE
[2019-05-03 01:54] LABS: ALBUMIN 3.5 g/dL (3.4-5.0); ANION GAP 1 mmol/L (5-15); CALCIUM 9.1 mg/dL (8.5-10.1); CHLORIDE 108 mmol/L (98-107); CREATININE 0.68 mg/dL (0.7-1.3)
[2019-05-03 01:57] LABS: TROPONIN I < 0.015 ng/mL (0.000-0.045)
--- NOTE | 2019-05-03 03:16 | NUR ---
Patient/Caregiver given discharge instructions and they have confirmed that they understand the instructions. Patient ambulatory with steady gait.
== END 2019-05-03 03:17 | disposition home or self-care (01) ==
LOC: ED 03:00
DX: R07.89 Other chest pain (principal); Z76.5 Malingerer [conscious simulation]; I10 Essential (primary) hypertension; J44.9 Chronic obstructive pulmonary disease, unspecified; F17.200 Nicotine dependence, unspecified, uncomplicated
CPT/HCPCS: 36415; 71045; 80048; 82040; 84484; 85025; 93005; 99284

== ENCOUNTER 2019-05-08 20:40 | Emergency (ER) | payer SELFPAY ==
[~2019-05-08] VITALS: Ht 179.1 cm; Wt 72.2 kg
[2019-05-08 20:48] VITALS: BP 105/72
--- NOTE | 2019-05-08 22:14 | NUR ---
PT C/O POSSIBLE INGESTION OF TOXIC SUBSTANCE. PT UNAWARE OF WHEN THIS HAPPENED. PT DENIES N/V/D. CONNECTED TO MONITORING. CALL LIGHT IN REACH. PROVIDER AT BEDSIDE. AWAITING ORDERS AT THIS TIME.
[2019-05-08 22:59] LABS: BASOPHILS # (AUTO) 0.07 x10^3/uL (0-0.1); BASOPHILS % (AUTO) 1 % (0-1); EOSINOPHILS # (AUTO) 0.19 x10^3/uL (0-0.4); EOSINOPHILS % (AUTO) 3 % (1-7); LYMPHOCYTES # (AUTO) 2.01 x10^3/uL (1-3.4); LYMPHOCYTES % (AUTO) 32 % (22-44); MD NO; MEAN CORPUSCULAR HEMOGLOBIN 32.3 pg (27.5-34.5); MEAN CORPUSCULAR HGB CONC 33.4 g/dL (33.2-36.2); MEAN CORPUSCULAR VOLUME 96.9 fL (81-97); MEAN PLATELET VOLUME 7.7 fL (7.4-10.4); MONOCYTES # (AUTO) 0.54 x10^3/uL (0.2-0.8); MONOCYTES % (AUTO) 9 % (2-9); NEUTROPHILS % (AUTO) 55 % (42-75); PLATELET COUNT 279 x10^3/uL (130-400); RED BLOOD COUNT 3.95 x10^6/uL (4.38-5.82); RED CELL DISTRIBUTION WIDTH 13.7 % (9.4-14.8)
[2019-05-08 23:07] LABS: ALANINE AMINOTRANSFERASE 16 U/L (12-78); ALBUMIN 3.4 g/dL (3.4-5.0); ANION GAP 4 mmol/L (5-15); CALCIUM 8.8 mg/dL (8.5-10.1); CHLORIDE 108 mmol/L (98-107); CREATININE 0.64 mg/dL (0.7-1.3)
[2019-05-08 23:10] LABS: ALKALINE PHOSPHATASE 61 U/L (45-117); BILIRUBIN,TOTAL 0.4 mg/dL (0.2-1.0); TOTAL PROTEIN 6.6 g/dL (6.4-8.2)
[2019-05-08 23:13] LABS: SALICYLATE LEVEL < 1.7 mg/dL (2.8-20.0)
--- NOTE | 2019-05-08 23:13 | NUR ---
THROUGHPUT RN: TELEPSYCH PAGED PER DR. STAPLES/DULCE MAY
--- NOTE | 2019-05-09 00:10 | NUR ---
Assumed care from WILBER Kuhn Pt alert and resting on gurney. Pt aware of need for urine sample. Pt given second cup of water. Telepsych computer in room for consult.
--- NOTE | 2019-05-09 01:04 | NUR ---
Pt did attempt to urinate in urinal. Pt reminded of second cup fo water. Plan to try again in 10 minutes.
--- NOTE | 2019-05-09 01:30 | NUR ---
Break RN: patient talking to psychiatrist at this time.
--- NOTE | 2019-05-09 01:56 | NUR ---
Pt sleeping on gurney. Pt awakens easily. VSS.
--- NOTE | 2019-05-09 02:07 | NUR ---
Pt d/c'd to self care. Pt alert and oriented at time of d/c. Pt educated on follow-up and home care. Pt NISHA.
== END 2019-05-09 02:15 | disposition home or self-care (01) ==
LOC: ED 23:40
DX: F41.1 Generalized anxiety disorder (principal); Z72.9 Problem related to lifestyle, unspecified; J44.9 Chronic obstructive pulmonary disease, unspecified; I10 Essential (primary) hypertension
CPT/HCPCS: 36415; 80053; 80164; 80178; 80307; 85025; 93005; 99284

== ENCOUNTER 2019-05-18 19:30 | Emergency (ER) | payer OTHER ==
--- NOTE | 2019-05-18 19:48 | NUR ---
PT WAS CALLED FROM THE LOBBY 3 TIMES AND WAS NOT PRESENT. LWBS
== END 2019-05-18 19:49 | disposition left against medical advice (07) ==
LOC: ED 19:43
DX: R07.89 Other chest pain (principal); Z53.21 Procedure and treatment not carried out due to patient leaving prior to being seen by health care provider

== ENCOUNTER 2019-06-06 00:20 | Emergency (ER) | payer SELFPAY ==
[~2019-06-06] VITALS: Ht 180.3 cm; Wt 72.0 kg
[2019-06-06 00:28] VITALS: BP 108/66
[2019-06-06] MEDS ORDERED: MORPHINE SULFATE 4 MG/ML, 1ML IVPush PRN (01:00)
[2019-06-06] MEDS ORDERED: ONDANSETRON 2MG/ML, 2ML IVPush ONE (01:00)
[2019-06-06] MEDS ORDERED: SODIUM CHLORIDE FLUSH 10ML SYR IVF ONE (01:00)
[2019-06-06 01:11] LABS: BASOPHILS # (AUTO) 0.07 x10^3/uL (0-0.1); BASOPHILS % (AUTO) 1 % (0-1); EOSINOPHILS # (AUTO) 0.15 x10^3/uL (0-0.4); EOSINOPHILS % (AUTO) 2 % (1-7); LYMPHOCYTES # (AUTO) 1.98 x10^3/uL (1-3.4); LYMPHOCYTES % (AUTO) 24 % (22-44); MD NO; MEAN CORPUSCULAR HEMOGLOBIN 32.3 pg (27.5-34.5); MEAN CORPUSCULAR HGB CONC 33.5 g/dL (33.2-36.2); MEAN CORPUSCULAR VOLUME 96.6 fL (81-97); MEAN PLATELET VOLUME 8.6 fL (7.4-10.4); MONOCYTES # (AUTO) 0.92 x10^3/uL (0.2-0.8); MONOCYTES % (AUTO) 11 % (2-9); NEUTROPHILS # (AUTO) 5.18 x10^3/uL (1.8-6.8); NEUTROPHILS % (AUTO) 62 % (42-75); PLATELET COUNT 226 x10^3/uL (130-400); RED BLOOD COUNT 3.84 x10^6/uL (4.38-5.82); RED CELL DISTRIBUTION WIDTH 13.6 % (9.4-14.8)
[2019-06-06 01:22] LABS: ALBUMIN 3.5 g/dL (3.4-5.0); ANION GAP 4 mmol/L (5-15); CALCIUM 8.6 mg/dL (8.5-10.1); CHLORIDE 110 mmol/L (98-107); CREATININE 0.71 mg/dL (0.7-1.3)
== END 2019-06-06 02:07 | disposition home or self-care (01) ==
LOC: ED 01:57
DX: R51 Headache (principal); I10 Essential (primary) hypertension; J44.9 Chronic obstructive pulmonary disease, unspecified
CPT/HCPCS: 36415; 80048; 82040; 85025; 93005; 99284

== ENCOUNTER 2019-06-09 19:34 | Emergency (ER) | payer SELFPAY ==
[~2019-06-09] VITALS: Ht 180.3 cm; Wt 71.7 kg
[2019-06-09 19:48] VITALS: BP 126/86
[2019-06-09 20:36] LABS: BASOPHILS # (AUTO) 0.09 x10^3/uL (0-0.1); BASOPHILS % (AUTO) 1 % (0-1); EOSINOPHILS # (AUTO) 0.18 x10^3/uL (0-0.4); EOSINOPHILS % (AUTO) 2 % (1-7); LYMPHOCYTES # (AUTO) 2.19 x10^3/uL (1-3.4); LYMPHOCYTES % (AUTO) 25 % (22-44); MD NO; MEAN CORPUSCULAR HEMOGLOBIN 32.7 pg (27.5-34.5); MEAN CORPUSCULAR VOLUME 96.2 fL (81-97); MEAN PLATELET VOLUME 7.8 fL (7.4-10.4); MONOCYTES # (AUTO) 0.77 x10^3/uL (0.2-0.8); MONOCYTES % (AUTO) 9 % (2-9); NEUTROPHILS # (AUTO) 5.68 x10^3/uL (1.8-6.8); NEUTROPHILS % (AUTO) 64 % (42-75); PLATELET COUNT 320 x10^3/uL (130-400); RED BLOOD COUNT 4.01 x10^6/uL (4.38-5.82); RED CELL DISTRIBUTION WIDTH 13.6 % (9.4-14.8)
[2019-06-09 20:42] LABS: ALBUMIN 3.7 g/dL (3.4-5.0); ANION GAP 4 mmol/L (5-15); CALCIUM 9.1 mg/dL (8.5-10.1); CHLORIDE 109 mmol/L (98-107); CREATININE 0.87 mg/dL (0.7-1.3)
[2019-06-09 20:46] LABS: TROPONIN I < 0.015 ng/mL (0.000-0.045)
--- NOTE | 2019-06-09 22:12 | NUR ---
PT IN GOWN IN [facility]. PT ATTACHED TO PERINATAL EDUCATOR AND VS MACHINES AT THIS TIME.
--- NOTE | 2019-06-09 23:12 | NUR ---
Patient/Caregiver given discharge instructions and they have confirmed that they understand the instructions. Patient ambulatory with steady gait.
== END 2019-06-09 23:31 | disposition home or self-care (01) ==
LOC: ED 20:34
DX: R56.9 Unspecified convulsions (principal); J44.9 Chronic obstructive pulmonary disease, unspecified; I10 Essential (primary) hypertension; R94.31 Abnormal electrocardiogram [ECG] [EKG]; F17.210 Nicotine dependence, cigarettes, uncomplicated; Z00.00 Encounter for general adult medical examination without abnormal findings; Z72.9 Problem related to lifestyle, unspecified
CPT/HCPCS: 36415; 80048; 82040; 84484; 85025; 93005; 99284; 99406

== ENCOUNTER 2019-06-19 03:49 | Emergency (ER) | payer MEDICARE, OTHER ==
[~2019-06-19] VITALS: Ht 180.3 cm; Wt 70.5 kg
--- NOTE | 2019-06-19 04:35 | NUR ---
Patient presents to ER c/o heart pain. "Cielo been having seizures all day, my eye twitches, my blood goes too fast and pushes on my upper right ventricle." He states it radiates to his spine and he "just hurts." Patient is in NAD. Respirations even and unlabored.
[2019-06-19 04:45] LABS: BASOPHILS # (AUTO) 0.09 x10^3/uL (0-0.1); BASOPHILS % (AUTO) 1 % (0-1); EOSINOPHILS # (AUTO) 0.26 x10^3/uL (0-0.4); EOSINOPHILS % (AUTO) 3 % (1-7); LYMPHOCYTES % (AUTO) 23 % (22-44); MD NO; MEAN CORPUSCULAR HEMOGLOBIN 32.4 pg (27.5-34.5); MEAN CORPUSCULAR HGB CONC 33.3 g/dL (33.2-36.2); MEAN CORPUSCULAR VOLUME 97.3 fL (81-97); MEAN PLATELET VOLUME 7.3 fL (7.4-10.4); MONOCYTES # (AUTO) 0.73 x10^3/uL (0.2-0.8); MONOCYTES % (AUTO) 9 % (2-9); NEUTROPHILS # (AUTO) 5.41 x10^3/uL (1.8-6.8); NEUTROPHILS % (AUTO) 65 % (42-75); PLATELET COUNT 356 x10^3/uL (130-400); RED BLOOD COUNT 4.37 x10^6/uL (4.38-5.82)
[2019-06-19 04:57] LABS: ALANINE AMINOTRANSFERASE 20 U/L (12-78); ALBUMIN 3.7 g/dL (3.4-5.0); ANION GAP 6 mmol/L (5-15); CALCIUM 9.3 mg/dL (8.5-10.1); CHLORIDE 106 mmol/L (98-107); CREATININE 0.78 mg/dL (0.7-1.3)
[2019-06-19 05:02] LABS: ALKALINE PHOSPHATASE 64 U/L (45-117); BILIRUBIN,TOTAL 0.6 mg/dL (0.2-1.0); TOTAL PROTEIN 7.2 g/dL (6.4-8.2); TROPONIN I < 0.015 ng/mL (0.000-0.045)
[2019-06-19 05:25] VITALS: BP 110/69
--- NOTE | 2019-06-19 05:46 | NUR ---
Discharge instructions given. All questions and concerns addressed. Patient ambulatory with a steady gait. Belongings with patient.
== END 2019-06-19 05:47 | disposition home or self-care (01) ==
LOC: ED 04:41
DX: R07.89 Other chest pain (principal); R00.2 Palpitations; I10 Essential (primary) hypertension; J44.9 Chronic obstructive pulmonary disease, unspecified
CPT/HCPCS: 36415; 71045; 80053; 84484; 85025; 93005; 99285

== ENCOUNTER 2019-06-19 18:47 | Emergency (ER) | payer SELFPAY ==
[~2019-06-19] VITALS: Ht 180.3 cm; Wt 73.0 kg
[2019-06-19 18:50] VITALS: BP 104/70
[2019-06-19] MEDS ORDERED: NEOSPORIN OINT. PKT 1 PACKET ONE (19:01)
--- NOTE | 2019-06-19 19:28 | NUR ---
FSBG PER JERRY GREY.
== END 2019-06-19 19:50 | disposition home or self-care (01) ==
LOC: ED 19:30
DX: F31.9 Bipolar disorder, unspecified (principal); I10 Essential (primary) hypertension; J44.9 Chronic obstructive pulmonary disease, unspecified; R94.31 Abnormal electrocardiogram [ECG] [EKG]; F17.200 Nicotine dependence, unspecified, uncomplicated; Z76.0 Encounter for issue of repeat prescription
CPT/HCPCS: 93005; 99283

== ENCOUNTER 2019-06-20 02:21 | Emergency (ER) | payer SELFPAY ==
[~2019-06-20] VITALS: Ht 175.3 cm; Wt 72.3 kg
[2019-06-20 02:26] VITALS: BP 127/70
--- NOTE | 2019-06-20 04:02 | NUR ---
CALLED FOR ROOM. NO ANSWER IN LOBBY
--- NOTE | 2019-06-20 04:19 | NUR ---
called for room. pt not found in lobby
--- NOTE | 2019-06-20 04:56 | NUR ---
no answer when called for room.
== END 2019-06-20 05:38 | disposition left against medical advice (07) ==
LOC: ED 04:20
DX: Z53.21 Procedure and treatment not carried out due to patient leaving prior to being seen by health care provider (principal)

== ENCOUNTER 2019-07-16 21:14 | Emergency (ER) | payer SELFPAY ==
[~2019-07-16] VITALS: Ht 180.3 cm; Wt 66.3 kg
[2019-07-16 21:19] VITALS: BP 113/68
== END 2019-07-16 22:01 | disposition home or self-care (01) ==
LOC: ED 21:54
DX: R00.2 Palpitations (principal); Z76.0 Encounter for issue of repeat prescription; J44.9 Chronic obstructive pulmonary disease, unspecified; F17.210 Nicotine dependence, cigarettes, uncomplicated; Z59.0 Homelessness
CPT/HCPCS: 93005; 99283

== ENCOUNTER 2019-07-22 04:25 | Emergency (ER) | payer MEDICARE, OTHER ==
[~2019-07-22] VITALS: Ht 180.3 cm; Wt 68.3 kg
[2019-07-22 04:33] VITALS: BP 116/72
[2019-07-22] MEDS ORDERED: ONDANSETRON ODT 4 MG ONE (05:34)
[2019-07-22] MEDS ORDERED: DIPH,PERTUSS(ACELL),TET VAC/PF 0.5 ML IM-VACC ONE (06:00)
[2019-07-22] MEDS ORDERED: ONDANSETRON ODT 4 MG PO ONE (06:00)
== END 2019-07-22 05:54 | disposition home or self-care (01) ==
LOC: ED 04:45
DX: R11.2 Nausea with vomiting, unspecified (principal); J44.9 Chronic obstructive pulmonary disease, unspecified; I10 Essential (primary) hypertension; F17.210 Nicotine dependence, cigarettes, uncomplicated
CPT/HCPCS: 90471; 90715; 99283; Q0162

== ENCOUNTER 2019-08-05 02:56 | Emergency (ER) | payer OTHER ==
[~2019-08-05] VITALS: Ht 175.3 cm; Wt 65.6 kg
[2019-08-05 03:01] VITALS: BP 117/86
== END 2019-08-05 03:17 | disposition home or self-care (01) ==
LOC: ED 03:05
DX: R06.02 Shortness of breath (principal); Z72.9 Problem related to lifestyle, unspecified; I10 Essential (primary) hypertension; J44.9 Chronic obstructive pulmonary disease, unspecified; F17.200 Nicotine dependence, unspecified, uncomplicated
CPT/HCPCS: 99281

== ENCOUNTER 2019-08-27 00:42 | Emergency (ER) | payer SELFPAY ==
[~2019-08-27] VITALS: Ht 175.3 cm; Wt 71.4 kg
[2019-08-27 00:44] VITALS: BP 121/77
[2019-08-27 01:34] LABS: BASOPHILS # (AUTO) 0.05 x10^3/uL (0-0.1); BASOPHILS % (AUTO) 1 % (0-1); EOSINOPHILS # (AUTO) 0.11 x10^3/uL (0-0.4); EOSINOPHILS % (AUTO) 2 % (1-7); LYMPHOCYTES # (AUTO) 1.32 x10^3/uL (1-3.4); LYMPHOCYTES % (AUTO) 22 % (22-44); MD NO; MEAN CORPUSCULAR HEMOGLOBIN 32.3 pg (27.5-34.5); MEAN CORPUSCULAR HGB CONC 33.6 g/dL (33.2-36.2); MEAN CORPUSCULAR VOLUME 96.3 fL (81-97); MEAN PLATELET VOLUME 7.1 fL (7.4-10.4); MONOCYTES % (AUTO) 8 % (2-9); NEUTROPHILS # (AUTO) 4.05 x10^3/uL (1.8-6.8); NEUTROPHILS % (AUTO) 67 % (42-75); PLATELET COUNT 327 x10^3/uL (130-400); RED BLOOD COUNT 4.09 x10^6/uL (4.38-5.82); RED CELL DISTRIBUTION WIDTH 13.8 % (9.4-14.8)
[2019-08-27 01:44] LABS: ALBUMIN 3.7 g/dL (3.4-5.0); ANION GAP 5 mmol/L (5-15); CALCIUM 8.8 mg/dL (8.5-10.1); CHLORIDE 106 mmol/L (98-107); CREATININE 0.63 mg/dL (0.7-1.3)
[2019-08-27 01:48] LABS: TROPONIN I < 0.015 ng/mL (0.000-0.045)
== END 2019-08-27 02:27 | disposition home or self-care (01) ==
LOC: ED 01:20
DX: R07.89 Other chest pain (principal); J18.9 Pneumonia, unspecified organism; R91.8 Other nonspecific abnormal finding of lung field; Z72.9 Problem related to lifestyle, unspecified; F17.290 Nicotine dependence, other tobacco product, uncomplicated; J44.9 Chronic obstructive pulmonary disease, unspecified; I10 Essential (primary) hypertension; I44.4 Left anterior fascicular block; I25.2 Old myocardial infarction
CPT/HCPCS: 36415; 71045; 80048; 82040; 84484; 85025; 93005; 99285; 99406

== ENCOUNTER 2019-08-27 23:36 | Emergency (ER) | payer SELFPAY ==
[~2019-08-27] VITALS: Ht 180.3 cm; Wt 75.0 kg
[2019-08-27 23:40] VITALS: BP 100/61
--- NOTE | 2019-08-28 00:03 | NUR ---
PT SEEN BY MD AND REQUESTED CRACKERS AND A BUS PASS. PT GIVEN THOSE THINGS AND DISCHARGED.
== END 2019-08-28 00:07 | disposition home or self-care (01) ==
LOC: ED 08-28
DX: G89.29 Other chronic pain (principal); M79.672 Pain in left foot; M79.671 Pain in right foot; F17.210 Nicotine dependence, cigarettes, uncomplicated; I10 Essential (primary) hypertension; J44.9 Chronic obstructive pulmonary disease, unspecified
CPT/HCPCS: 99282; 99406

== ENCOUNTER 2019-11-13 03:43 | Emergency (ER) | payer SELFPAY ==
[~2019-11-13] VITALS: Ht 180.3 cm; Wt 64.4 kg
[2019-11-13 05:22] LABS: BASOPHILS # (AUTO) 0.05 x10^3/uL (0-0.1); BASOPHILS % (AUTO) 1 % (0-1); EOSINOPHILS # (AUTO) 0.17 x10^3/uL (0-0.4); EOSINOPHILS % (AUTO) 3 % (1-7); LYMPHOCYTES # (AUTO) 1.56 x10^3/uL (1-3.4); LYMPHOCYTES % (AUTO) 26 % (22-44); MD NO; MEAN CORPUSCULAR HEMOGLOBIN 32.5 pg (27.5-34.5); MEAN CORPUSCULAR HGB CONC 33.4 g/dL (33.2-36.2); MEAN CORPUSCULAR VOLUME 97.5 fL (81-97); MEAN PLATELET VOLUME 7.5 fL (7.4-10.4); MONOCYTES # (AUTO) 0.54 x10^3/uL (0.2-0.8); MONOCYTES % (AUTO) 9 % (2-9); NEUTROPHILS # (AUTO) 3.69 x10^3/uL (1.8-6.8); NEUTROPHILS % (AUTO) 61 % (42-75); PLATELET COUNT 288 x10^3/uL (130-400); RED BLOOD COUNT 3.87 x10^6/uL (4.38-5.82); RED CELL DISTRIBUTION WIDTH 14.1 % (9.4-14.8)
[2019-11-13 05:32] LABS: ALANINE AMINOTRANSFERASE 26 U/L (12-78); ALBUMIN 3.5 g/dL (3.4-5.0); ANION GAP 2 mmol/L (5-15); CALCIUM 8.8 mg/dL (8.5-10.1); CHLORIDE 107 mmol/L (98-107); CREATININE 0.66 mg/dL (0.7-1.3)
[2019-11-13 05:37] LABS: ALKALINE PHOSPHATASE 65 U/L (45-117); BILIRUBIN,TOTAL 0.4 mg/dL (0.2-1.0); TOTAL PROTEIN 6.5 g/dL (6.4-8.2); TROPONIN I < 0.015 ng/mL (0.000-0.045)
[2019-11-13 05:58] VITALS: BP 95/57
[2019-11-14] MEDS ORDERED: DIVA500T2 PO (05:20)
[2019-11-14] MEDS ORDERED: ZOLP-413 PO (05:20)
[2019-11-14] MEDS ORDERED: LITH450T PO (05:20)
== END 2019-11-13 06:10 | disposition home or self-care (01) ==
LOC: ED 04:42
DX: R06.00 Dyspnea, unspecified (principal); D63.8 Anemia in other chronic diseases classified elsewhere; I45.10 Unspecified right bundle-branch block; J44.9 Chronic obstructive pulmonary disease, unspecified; I10 Essential (primary) hypertension
CPT/HCPCS: 36415; 71045; 80053; 84484; 85025; 93005; 99285; 99406

== ENCOUNTER 2019-11-14 04:44 | Emergency (ER) | payer SELFPAY ==
[~2019-11-14] VITALS: Ht 180.3 cm; Wt 63.7 kg
[2019-11-14] MEDS ORDERED: ACETAMINOPHEN 325 MG TABLET ONE (05:12)
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
[2019-11-14] MEDS ORDERED: LITH450T PO (05:20)
[2019-11-14] MEDS ORDERED: ZOLP-413 PO (05:20)
[2019-11-14] MEDS ORDERED: DIVA500T2 PO (05:20)
[2019-11-14] MEDS ORDERED: ACETAMINOPHEN 325 MG TABLET PO ONE (05:30)
[2019-11-14 06:10] VITALS: BP 106/59
--- NOTE | 2019-11-14 06:16 | NUR ---
Patient given discharge instructions and they have confirmed that they understand the instructions. Patient ambulatory with steady gait. PA INFORMED THAT PT REQUESTING ADDITIONAL PHARMACY MEDICATIONS, PA INTO ROOM TO TALK WITH PT. PT DENIES ADDITIONAL NEEDS, GIVEN JUICE AND CRACKERS, NAD. NO PT BELONGINGS LEFT IN ROOM AT THE TIME OF DC.
== END 2019-11-14 06:31 | disposition home or self-care (01) ==
LOC: ED 05:36
DX: S86.912A Strain of unspecified muscle(s) and tendon(s) at lower leg level, left leg, initial encounter (principal); J44.9 Chronic obstructive pulmonary disease, unspecified; I10 Essential (primary) hypertension; X50.1XXA Overexertion from prolonged static or awkward postures, initial encounter; Y93.89 Activity, other specified; Y92.410 Unspecified street and highway as the place of occurrence of the external cause; Y99.8 Other external cause status
CPT/HCPCS: 93005; 99283

== ENCOUNTER 2019-11-19 04:56 | Emergency (ER) | payer SELFPAY ==
[~2019-11-19] VITALS: Ht 177.8 cm; Wt 64.8 kg
[~2019-11-19 04:56] MED LIST changes: +LITH450T PO
[2019-11-19] MEDS ORDERED: KETOROLAC 30 MG/1 ML IM ONE (05:30)
[2019-11-19] MEDS ORDERED: METHOCARBAMOL 750 MG TABLET PO ONE (05:30)
[2019-11-19] MEDS ORDERED: METHOCARBAMOL 750 MG TABLET ONE (05:42)
[2019-11-19] MEDS ORDERED: KETOROLAC 30 MG/1 ML ONE (05:42)
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
[2019-11-19 06:43] VITALS: BP 119/72
== END 2019-11-19 06:44 | disposition home or self-care (01) ==
LOC: ED 06:19
DX: S39.012A Strain of muscle, fascia and tendon of lower back, initial encounter (principal); M51.36 Other intervertebral disc degeneration, lumbar region; J44.9 Chronic obstructive pulmonary disease, unspecified; I10 Essential (primary) hypertension; F17.210 Nicotine dependence, cigarettes, uncomplicated; X58.XXXA Exposure to other specified factors, initial encounter; Y93.89 Activity, other specified; Y92.89 Other specified places as the place of occurrence of the external cause; Y99.8 Other external cause status
CPT/HCPCS: 72110; 96372; 99283; J1885

== ENCOUNTER 2019-11-19 22:49 | Emergency (ER) | payer SELFPAY ==
[~2019-11-19] VITALS: Ht 180.3 cm; Wt 64.3 kg
[2019-11-19 22:53] VITALS: BP 121/76
--- NOTE | 2019-11-20 00:56 | NUR ---
Attempted to room ptAugusta Cummings
--- NOTE | 2019-11-20 01:19 | NUR ---
Attempted to room pt. NILx2
--- NOTE | 2019-11-20 01:38 | NUR ---
Attempted to room pt. NILx3.
== END 2019-11-20 01:39 | disposition left against medical advice (07) ==
LOC: ED 11-20 01:30
DX: M54.5 Low back pain (principal); Z53.21 Procedure and treatment not carried out due to patient leaving prior to being seen by health care provider

== ENCOUNTER 2019-11-22 10:14 | Emergency (ER) | payer SELFPAY ==
[~2019-11-22] VITALS: Ht 180.3 cm; Wt 63.6 kg
--- NOTE | 2019-11-22 10:35 | NUR ---
PATIENT HERE TODAY WITH C/O CHEST PAIN AND SOB THAT STARTED LAST NIGHT. PATIENT STATES PAIN IN HIS CHEST SOMETIMES RADIATES TO "MY LOWER LEGS." Addendum: 11/22/19 at 1048 by [email or web address] PATIENTS O2 SATURATION IS 98% ON RA, NO OBVIOUS SIGNS OF DISTRESS. CALL LIGHT WITHIN REACH, SIDE RAILS UP X2, NO FURTHER NEEDS AT THIS TIME.
[2019-11-22] MEDS ORDERED: ASPIRIN 81 MG TABLET CHEW ONE (10:50)
[2019-11-22 11:21] LABS: BASOPHILS # (AUTO) 0.04 x10^3/uL (0-0.1); BASOPHILS % (AUTO) 1 % (0-1); EOSINOPHILS # (AUTO) 0.14 x10^3/uL (0-0.4); EOSINOPHILS % (AUTO) 3 % (1-7); LYMPHOCYTES # (AUTO) 1.65 x10^3/uL (1-3.4); LYMPHOCYTES % (AUTO) 30 % (22-44); MD NO; MEAN CORPUSCULAR HEMOGLOBIN 32.4 pg (27.5-34.5); MEAN CORPUSCULAR HGB CONC 33.4 g/dL (33.2-36.2); MEAN CORPUSCULAR VOLUME 96.9 fL (81-97); MEAN PLATELET VOLUME 7.4 fL (7.4-10.4); MONOCYTES # (AUTO) 0.49 x10^3/uL (0.2-0.8); MONOCYTES % (AUTO) 9 % (2-9); NEUTROPHILS # (AUTO) 3.19 x10^3/uL (1.8-6.8); NEUTROPHILS % (AUTO) 58 % (42-75); PLATELET COUNT 275 x10^3/uL (130-400); RED BLOOD COUNT 3.89 x10^6/uL (4.38-5.82); RED CELL DISTRIBUTION WIDTH 13.7 % (9.4-14.8)
[2019-11-22 11:27] LABS: ALANINE AMINOTRANSFERASE 27 U/L (12-78); ALBUMIN 3.7 g/dL (3.4-5.0); ANION GAP 5 mmol/L (5-15); CALCIUM 9.1 mg/dL (8.5-10.1); CHLORIDE 112 mmol/L (98-107); CREATININE 0.64 mg/dL (0.7-1.3)
[2019-11-22] MEDS ORDERED: ASPIRIN 81 MG TABLET CHEW PO ONE (11:30)
[2019-11-22 11:31] LABS: ALKALINE PHOSPHATASE 66 U/L (45-117); BILIRUBIN,TOTAL 0.3 mg/dL (0.2-1.0); TOTAL PROTEIN 6.8 g/dL (6.4-8.2); TROPONIN I < 0.015 ng/mL (0.000-0.045)
--- NOTE | 2019-11-22 11:32 | NUR ---
PATIENT SLEEPING IN [facility], VITAL SIGNS WITHIN NORMAL LIMITS, CALL LIGHT WITHIN REACH.
--- NOTE | 2019-11-22 12:29 | NUR ---
PATIENT SLEEPING IN GURNEY, EASILY AROUSED, PATIENT STATES HIS CHEST PAIN IS BETTER, WATER PROVIDED TO PATIENT.
--- NOTE | 2019-11-22 13:09 | NUR ---
REPORT RC'VD FROM JAUN MERINO. AWAITING RADIOLOGY READING.
--- NOTE | 2019-11-22 13:30 | NUR ---
PT AWAKE, REQUESTED FOOD & BUS PASS. VSS, NO S/S OF DISTRESS.
[2019-11-22 13:38] VITALS: BP 108/66
--- NOTE | 2019-11-22 13:47 | NUR ---
D/C INSTRUCTIONS & F/U APPT RV'WD WITH PT, HE VERBALIZES UNDERSTANDING. SNACKS & WATER PROVIDED. BUS PASS PROVIDED. PT AMBULATED OUT OF ED WITHOUT DIFFICULTY.
== END 2019-11-22 13:48 | disposition home or self-care (01) ==
LOC: ED 11:46
DX: R07.89 Other chest pain (principal); J44.9 Chronic obstructive pulmonary disease, unspecified; I10 Essential (primary) hypertension
CPT/HCPCS: 36415; 71045; 80053; 84484; 85025; 93005; 99285

== ENCOUNTER 2019-11-25 02:48 | Emergency (ER) | payer SELFPAY ==
[~2019-11-25] VITALS: Ht 175.3 cm; Wt 65.0 kg
[2019-11-25 02:55] VITALS: BP 117/70
[2019-11-25] MEDS ORDERED: ACETAMINOPHEN 500 MG TABLET ONE (03:38)
[2019-11-25] MEDS ORDERED: ACETAMINOPHEN 500 MG TABLET PO ONE (04:00)
== END 2019-11-25 03:52 | disposition home or self-care (01) ==
LOC: ED 03:08
DX: M54.5 Low back pain (principal); I10 Essential (primary) hypertension; J44.9 Chronic obstructive pulmonary disease, unspecified; F17.210 Nicotine dependence, cigarettes, uncomplicated; Z72.9 Problem related to lifestyle, unspecified
CPT/HCPCS: 99282; 99406

== ENCOUNTER 2020-02-11 20:09 | Emergency (ER) | payer SELFPAY ==
[~2020-02-11] VITALS: Ht 180.3 cm; Wt 72.5 kg
[2020-02-11] MEDS ORDERED: SODIUM CHLORIDE FLUSH 10ML SYR IVF ONE (20:30)
[2020-02-11 21:03] LABS: BASOPHILS % (AUTO) 1 % (0-1); EOSINOPHILS % (AUTO) 1 % (1-7); LYMPHOCYTES % (AUTO) 18 % (22-44); MEAN CORPUSCULAR HEMOGLOBIN 32.6 pg (27.5-34.5); MEAN CORPUSCULAR HGB CONC 33.9 g/dL (33.2-36.2); MEAN PLATELET VOLUME 7.3 fL (7.4-10.4); MONOCYTES % (AUTO) 12 % (2-9); NEUTROPHILS % (AUTO) 67 % (42-75); PLATELET COUNT 332 x10^3/uL (130-400); RED BLOOD COUNT 4.74 x10^6/uL (4.38-5.82); RED CELL DISTRIBUTION WIDTH 13.3 % (9.4-14.8)
[2020-02-11 21:05] LABS: MD NO
[2020-02-11 21:12] LABS: ALANINE AMINOTRANSFERASE 16 U/L (12-78); ALBUMIN 4.2 g/dL (3.4-5.0); ANION GAP 5 mmol/L (5-15); CALCIUM 9.7 mg/dL (8.5-10.1); CHLORIDE 100 mmol/L (98-107); CREATININE 0.78 mg/dL (0.7-1.3)
[2020-02-11 21:16] LABS: ALKALINE PHOSPHATASE 81 U/L (45-117); BILIRUBIN,TOTAL 0.6 mg/dL (0.2-1.0); TOTAL PROTEIN 8.1 g/dL (6.4-8.2); TROPONIN I < 0.015 ng/mL (0.000-0.045)
[2020-02-11] MEDS ORDERED: AZITHROMYCIN 500 MG TABLET PO ONE (21:30)
[2020-02-11] MEDS ORDERED: AZITHROMYCIN 500 MG TABLET ONE (21:37)
[2020-02-11 21:49] VITALS: BP 134/72
== END 2020-02-11 21:51 | disposition home or self-care (01) ==
LOC: ED 21:46
DX: J15.9 Unspecified bacterial pneumonia (principal); R07.9 Chest pain, unspecified; R94.31 Abnormal electrocardiogram [ECG] [EKG]; F17.210 Nicotine dependence, cigarettes, uncomplicated
CPT/HCPCS: 36415; 71045; 80053; 84484; 85025; 93005; 99285; 99406

== ENCOUNTER 2020-04-27 23:20 | Emergency (ER) | payer SELFPAY ==
[~2020-04-27] VITALS: Ht 177.8 cm; Wt 90.0 kg
[2020-04-27 23:33] VITALS: BP 132/86
--- NOTE | 2020-04-27 23:39 | NUR ---
BELONGINGS PLACED IN BELONGINGS BAGS, 4 OUT OF 4 IN LOCKER. PATIENT SAFETY CHECK COMPLETED. PATIENT UPDATED ON PLAN OF CARE. NO NOTED ACUTE DISTRESS.
[2020-04-27 23:58] LABS: BASOPHILS % (AUTO) 1 % (0-1); EOSINOPHILS % (AUTO) 1 % (1-7); LYMPHOCYTES % (AUTO) 23 % (22-44); MEAN CORPUSCULAR HEMOGLOBIN 32.8 pg (27.5-34.5); MEAN CORPUSCULAR HGB CONC 34.1 g/dL (33.2-36.2); MEAN PLATELET VOLUME 8.1 fL (7.4-10.4); MONOCYTES % (AUTO) 11 % (2-9); NEUTROPHILS % (AUTO) 63 % (42-75); PLATELET COUNT 271 x10^3/uL (130-400); RED BLOOD COUNT 4.52 x10^6/uL (4.38-5.82); RED CELL DISTRIBUTION WIDTH 13.1 % (9.4-14.8)
[2020-04-28 00:01] LABS: MD NO
[2020-04-28 00:10] LABS: ALBUMIN 3.8 g/dL (3.4-5.0); ANION GAP 3 mmol/L (5-15); CALCIUM 9.3 mg/dL (8.5-10.1); CHLORIDE 106 mmol/L (98-107); CREATININE 0.99 mg/dL (0.7-1.3)
[2020-04-28 00:14] LABS: TROPONIN I < 0.015 ng/mL (0.000-0.045)
--- NOTE | 2020-04-28 00:26 | NUR ---
PT COUGHING IN ROOM, PT INSTRUCTED AGAIN TO PLACE MASK ON FACE. DOOR CLOSED. PT WITH IN RN VIEW.
--- NOTE | 2020-04-28 01:22 | NUR ---
PT PROVIDED WITH PB&J SANDWICH AND MILK, PT THREW THEM ON THE GROUND. PT SAFE FOR DC.
--- NOTE | 2020-04-28 01:42 | NUR ---
Report from WILBER Simmons. [facility] care.
== END 2020-04-28 02:00 | disposition home or self-care (01) ==
LOC: ED 04-28 00:10
DX: R07.89 Other chest pain (principal); Z72.9 Problem related to lifestyle, unspecified; I10 Essential (primary) hypertension; J44.9 Chronic obstructive pulmonary disease, unspecified; F17.200 Nicotine dependence, unspecified, uncomplicated
CPT/HCPCS: 36415; 80048; 82040; 84484; 85025; 93005; 99284

== ENCOUNTER 2020-05-06 20:28 | Emergency (ER) | payer SELFPAY ==
[~2020-05-06] VITALS: Ht 154.9 cm; Wt 74.5 kg
--- NOTE | 2020-05-06 20:53 | NUR ---
PT IN BED, STATES " I FELT SOB" " i CANT BREATH". PT I 96% ON ROOM AIR. RR 18. AND VSS. PT IS IN NO VISUAL DISTRESS
[2020-05-06] MEDS ORDERED: AZITHROMYCIN 500 MG TABLET ONE (21:50)
[2020-05-06 21:52] VITALS: BP 127/78
[2020-05-06] MEDS ORDERED: AZITHROMYCIN 500 MG TABLET PO ONE (22:00)
== END 2020-05-06 21:54 | disposition home or self-care (01) ==
LOC: ED 21:05
DX: J44.1 Chronic obstructive pulmonary disease with (acute) exacerbation (principal); R06.02 Shortness of breath; R06.00 Dyspnea, unspecified; R05 Cough; I10 Essential (primary) hypertension; Z87.891 Personal history of nicotine dependence
CPT/HCPCS: 71045; 93005; 99283

== ENCOUNTER 2020-06-14 02:04 | Emergency (ER) | payer SELFPAY ==
[~2020-06-14] VITALS: Ht 172.7 cm; Wt 67.0 kg
[2020-06-14 02:07] VITALS: BP 127/73
== END 2020-06-14 02:18 | disposition home or self-care (01) ==
LOC: ED 02:14
DX: I10 Essential (primary) hypertension (principal); J44.9 Chronic obstructive pulmonary disease, unspecified; F17.210 Nicotine dependence, cigarettes, uncomplicated; Z72.9 Problem related to lifestyle, unspecified
CPT/HCPCS: 99283; 99406

== ENCOUNTER 2020-10-16 23:49 | Emergency (ER) | payer SELFPAY ==
[~2020-10-16] VITALS: Ht 180.3 cm; Wt 78.1 kg
[2020-10-16 23:57] VITALS: BP 137/84
--- NOTE | 2020-10-17 00:45 | NUR ---
NIL X 1
== END 2020-10-17 00:51 | disposition left against medical advice (07) ==
LOC: ED 10-17 00:49
DX: R07.89 Other chest pain (principal); Z53.21 Procedure and treatment not carried out due to patient leaving prior to being seen by health care provider
CPT/HCPCS: 93005

== ENCOUNTER 2020-11-05 04:23 | Emergency (ER) | payer SELFPAY ==
[~2020-11-05] VITALS: Ht 180.3 cm; Wt 68.6 kg
--- NOTE | 2020-11-05 04:41 | NUR ---
pt came into the ed this am due to chest pain that came on while he was resting, pt states its middle to upper portion of chest up to the base of the esophagus. pt also has a sore throat. pt palced on spo2/bp/ecg monitoring at this time. nad, Patient is resting comfortably in bed. Bed in lowest, rails engaged, call light on lap. Vital Signs within normal limits. WCTM.
--- NOTE | 2020-11-05 05:23 | NUR ---
Patient is resting comfortably in bed. Bed in lowest, rails engaged, call light on lap. Vital Signs within normal limits. WCTM. NO CHANGE IN CONDITION AT THIS TIME.
[2020-11-05 05:55] VITALS: BP 98/57
--- NOTE | 2020-11-05 05:55 | NUR ---
Patient/Caregiver given discharge instructions and they have confirmed that they understand the instructions. Patient ambulatory with steady gait. NAD, all questions answered appropriately, denies additional needs at this time. No personal belongings left in room after discharge.
== END 2020-11-05 05:57 | disposition home or self-care (01) ==
LOC: ED 05:16
DX: J43.9 Emphysema, unspecified (principal); I45.10 Unspecified right bundle-branch block; F17.200 Nicotine dependence, unspecified, uncomplicated
CPT/HCPCS: 93005; 99283

== ENCOUNTER 2020-11-22 23:30 | Emergency (ER) | payer OTHER ==
[~2020-11-22] VITALS: Ht 180.3 cm; Wt 66.8 kg
--- NOTE | 2020-11-23 00:41 | NUR ---
PT CAME IN CO FATIGUE, CHILLS, SOB AND COUGH. EKG COMPLETE. PT CONNECTED TO ALL MONITORS. RESTING IN [facility]
--- NOTE | 2020-11-23 00:56 | NUR ---
REPORT RECIEVED FROM WILBER MONTILLA
[2020-11-23 01:25] LABS: BASOPHILS % (AUTO) 1 % (0-1); EOSINOPHILS % (AUTO) 3 % (1-7); LYMPHOCYTES % (AUTO) 29 % (22-44); MEAN CORPUSCULAR HGB CONC 33.8 g/dL (33.2-36.2); MEAN PLATELET VOLUME 7.1 fL (7.4-10.4); MONOCYTES % (AUTO) 10 % (2-9); NEUTROPHILS % (AUTO) 57 % (42-75); PLATELET COUNT 311 x10^3/uL (130-400); RED BLOOD COUNT 4.25 x10^6/uL (4.38-5.82); RED CELL DISTRIBUTION WIDTH 13.8 % (9.4-14.8)
[2020-11-23 01:36] LABS: ALANINE AMINOTRANSFERASE 19 U/L (12-78); ALBUMIN 3.6 g/dL (3.4-5.0); ANION GAP 5 mmol/L (5-15); CALCIUM 9.5 mg/dL (8.5-10.1); CHLORIDE 109 mmol/L (98-107); CREATININE 0.83 mg/dL (0.7-1.3)
[2020-11-23 01:39] LABS: ALKALINE PHOSPHATASE 55 U/L (45-117); BILIRUBIN,TOTAL 0.4 mg/dL (0.2-1.0); TOTAL PROTEIN 7.4 g/dL (6.4-8.2)
[2020-11-23 02:40] VITALS: BP 110/72
== END 2020-11-23 02:43 | disposition home or self-care (01) ==
LOC: ED 23:59
DX: R06.00 Dyspnea, unspecified (principal); R10.84 Generalized abdominal pain; I10 Essential (primary) hypertension; J44.9 Chronic obstructive pulmonary disease, unspecified; F17.200 Nicotine dependence, unspecified, uncomplicated
CPT/HCPCS: 36415; 71045; 80053; 83690; 85025; 93005; 99285

== ENCOUNTER 2020-12-03 03:02 | Emergency (ER) | payer OTHER ==
[~2020-12-03] VITALS: Ht 180.3 cm; Wt 64.6 kg
[2020-12-03 03:05] VITALS: BP 116/75
--- NOTE | 2020-12-03 04:38 | NUR ---
PATIENT CLEARED FOR DISCHARGE. NO NOTED ACUTE DISTRESS. VSS. PATIENT VERBALIZED UNDERSTANDING FOR SELF CARE AND FOLLOW UP CARE AT HOME. AMBULATORY TO DISCHARGE DESK WITHOUT COMPLICATIONS WITH BELONGINGS.
== END 2020-12-03 04:48 | disposition home or self-care (01) ==
LOC: ED 03:30
DX: R00.2 Palpitations (principal); Z72.9 Problem related to lifestyle, unspecified; J44.9 Chronic obstructive pulmonary disease, unspecified; R11.10 Vomiting, unspecified; I10 Essential (primary) hypertension
CPT/HCPCS: 93005; 99283

== ENCOUNTER 2020-12-23 04:41 | Emergency (ER) | payer SELFPAY ==
[~2020-12-23] VITALS: Ht 177.8 cm; Wt 63.7 kg
[2020-12-23 04:49] VITALS: BP 125/75
== END 2020-12-23 07:05 | disposition left against medical advice (07) ==
LOC: ED 06:00
DX: R00.2 Palpitations (principal); Z53.21 Procedure and treatment not carried out due to patient leaving prior to being seen by health care provider

== ENCOUNTER 2020-12-23 23:36 | Emergency (ER) | payer SELFPAY ==
[~2020-12-23] VITALS: Ht 175.3 cm; Wt 64.4 kg
--- NOTE | 2020-12-23 23:39 | NUR ---
[id number] WHEN CALLED FOR TRIAGE
[2020-12-23 23:42] VITALS: BP 127/75
--- NOTE | 2020-12-24 00:37 | NUR ---
Patient given discharge instructions and they have confirmed that they understand the instructions. Patient ambulatory with steady gait. NAD, all questions answered appropriately, denies additional needs at this time. No personal belongings left in room after discharge.
== END 2020-12-24 00:38 | disposition home or self-care (01) ==
LOC: ED 23:59
DX: R56.9 Unspecified convulsions (principal); Z72.9 Problem related to lifestyle, unspecified
CPT/HCPCS: 99281

== ENCOUNTER 2020-12-28 18:27 | Emergency (ER) | payer SELFPAY ==
[~2020-12-28] VITALS: Ht 180.3 cm; Wt 63.1 kg
[2020-12-28 18:32] VITALS: BP 101/66
[2020-12-28] MEDS ORDERED: ASPIRIN 81 MG TABLET CHEW PO ONE (19:00)
[2020-12-28 19:19] LABS: BASOPHILS % (AUTO) 1 % (0-1); EOSINOPHILS % (AUTO) 4 % (1-7); LYMPHOCYTES % (AUTO) 23 % (22-44); MEAN CORPUSCULAR HEMOGLOBIN 32.7 pg (27.5-34.5); MEAN CORPUSCULAR HGB CONC 34.6 g/dL (33.2-36.2); MEAN PLATELET VOLUME 7.3 fL (7.4-10.4); MONOCYTES % (AUTO) 9 % (2-9); NEUTROPHILS % (AUTO) 63 % (42-75); PLATELET COUNT 324 x10^3/uL (130-400); RED BLOOD COUNT 4.32 x10^6/uL (4.38-5.82); RED CELL DISTRIBUTION WIDTH 13.6 % (9.4-14.8)
[2020-12-28 19:32] LABS: ALBUMIN 3.5 g/dL (3.4-5.0); ANION GAP 4 mmol/L (5-15); CALCIUM 8.8 mg/dL (8.5-10.1); CHLORIDE 105 mmol/L (98-107)
[2020-12-28 19:38] LABS: ALANINE AMINOTRANSFERASE 28 U/L (12-78); ALKALINE PHOSPHATASE 59 U/L (45-117); BILIRUBIN,TOTAL 0.4 mg/dL (0.2-1.0); CREATININE 0.72 mg/dL (0.7-1.3); TOTAL PROTEIN 7.3 g/dL (6.4-8.2); TROPONIN I < 0.015 ng/mL (0.000-0.045)
--- NOTE | 2020-12-28 20:30 | NUR ---
LEFT AMA, SIGNED AMA AT REG DESK
== END 2020-12-28 20:31 | disposition left against medical advice (07) ==
LOC: ED 19:00
DX: R07.89 Other chest pain (principal)
CPT/HCPCS: 36415; 71045; 80053; 84484; 85025; 93005; 99285